=== PATIENT | female | born 1965 | race Caucasian/White ===

== ENCOUNTER 2016-03-10 15:33 | Emergency (ER) | payer MEDICAID ==
[~2016-03-10] VITALS: Ht 182.9 cm; Wt 81.6 kg
[2016-03-10 16:34] LABS: Basophils # (auto) 0 uL; Basophils % (auto) 0.6 % (0.0-2.0); Eosinophils # (auto) 0 uL; Eosinophils % (auto) 0.6 % (0.0-7.0); Hemoglobin 16.1 g/dL (12.2-16.2); Lymphocytes # (auto) 2.2 uL; Lymphocytes % (auto) 25.4 % (10.0-50.0); Mean Corpuscular Hemoglobin 27.3 pg (28.0-32.0); Mean Corpuscular Hgb Conc. 32.3 g/dL (32.0-36.0); Mean Corpuscular Volume 84.6 fL (80.0-100.0); Mean Platelet Volume 10.3 fL (7.4-10.4); Monocytes # (auto) 0.4 uL; Neutrophils # (auto) 5.8 uL; Neutrophils % (auto) 68.4 % (37.0-80.0); Platelet Count (auto) 257 10^3/uL (140-450); Red Cell Distribution Width 13.6 % (11.6-16.0); White Blood Cell 8.5 10^3/uL (4.4-10.8)
[2016-03-10 16:40] LABS: Calcium 9.3 mg/dL (8.5-10.1); Magnesium 2.4 mg/dL (1.6-2.6); Potassium 4.1 mmol/L (3.5-5.1)
[2016-03-10 16:42] LABS: BUN/Creatinine Ratio 15.6
[2016-03-10 16:45] LABS: Bilirubin, Total 1.1 mg/dL (0.2-1.0); Total Protein 8.7 g/dL (6.4-8.2)
[2016-03-10 16:56] VITALS: BP 170/99
[2016-03-10] MEDS ORDERED: ONDANSETRON HCL 4 MG/2 ML VIAL IM ONE (17:30)
[2016-03-10] MEDS ORDERED: HYDROmorphone HCL 2 MG/ML VL IM ONE (17:30)
== END 2016-03-10 18:22 | disposition home or self-care (01) ==
LOC: ER 15:39
DX: J20.9 Acute bronchitis, unspecified (principal); I10 Essential (primary) hypertension; M19.90 Unspecified osteoarthritis, unspecified site; F17.210 Nicotine dependence, cigarettes, uncomplicated; F12.10 Cannabis abuse, uncomplicated; Z86.73 Personal history of transient ischemic attack (TIA), and cerebral infarction without residual deficits; Z87.442 Personal history of urinary calculi; Z90.49 Acquired absence of other specified parts of digestive tract; Z88.6 Allergy status to analgesic agent
CPT/HCPCS: 36415; 71020; 80053; 83735; 84484; 85025; 93005; 96372; 99285; J1170; J2405

== ENCOUNTER 2017-05-24 19:19 | Emergency (ER) | payer MEDICAID ==
[~2017-05-24] VITALS: Ht 182.9 cm; Wt 81.6 kg
[2017-05-24 20:21] LABS: Basophils # (auto) 0.1 uL; Basophils % (auto) 0.8 % (0.0-2.0); Eosinophils # (auto) 0.1 uL; Eosinophils % (auto) 1.1 % (0.0-7.0); Hematocrit 49.9 % (36.0-46.0); Hemoglobin 17.2 g/dL (12.2-16.2); Lymphocytes # (auto) 2.1 uL; Lymphocytes % (auto) 24.6 % (10.0-50.0); Mean Corpuscular Hemoglobin 29.5 pg (28.0-32.0); Mean Corpuscular Hgb Conc. 34.4 g/dL (32.0-36.0); Monocytes # (auto) 0.5 uL; Neutrophils # (auto) 5.8 uL; Neutrophils % (auto) 67.5 % (37.0-80.0); Nucleated Red Blood Cells % 0.1 %; Platelet Count (auto) 215 10^3/uL (140-450); Red Blood Cells 5.81 10^6/uL (4.0-5.20); Red Cell Distribution Width 13.5 % (11.8-14.3); White Blood Cell 8.6 10^3/uL (4.4-10.8)
[2017-05-24 20:40] LABS: Alanine Aminotransferase 60 U/L (13-56); Albumin 4.2 g/dL (3.4-5.0); Alkaline Phosphatase 105 U/L (45-117); Anion Gap 10 (5-15); Aspartate Aminotransferase 43 U/L (15-37); BUN/Creatinine Ratio 19.6; Bilirubin, Total 0.9 mg/dL (0.2-1.0); Blood Urea Nitrogen 21 mg/dL (7-18); Calcium 8.9 mg/dL (8.5-10.1); Carbon Dioxide 24 mmol/L (21-32); Chloride 103 mmol/L (98-107); GFR African American 69 mL/min; GFR Non-African American 57 mL/min; Glucose 104 mg/dL (74-106); Magnesium 2.4 mg/dL (1.6-2.6); Potassium 3.4 mmol/L (3.5-5.1); Sodium 137 mmol/L (136-145); Total Protein 9.2 g/dL (6.4-8.2)
[2017-05-25 01:46] LABS: Urine Bacteria NONE SEEN /hpf (None Seen); Urine Blood Negative /uL (Negative); Urine Mucus FEW (None Seen); Urine Specific Gravity 1.027 (1.001-1.035); Urine WBC 3 /hpf (0 - 5)
[2017-05-25 01:58] LABS: Alcohol, Urine < 3.0 mg/dL (0-5); Amphetamine Screen, Urine NEGATIVE (NEGATIVE); Barbiturate Scree,Urine NEGATIVE (NEGATIVE); Benzodiazephine Screen, Urine NEGATIVE (NEGATIVE); Cannabinoid Screen, Urine POSITIVE (NEGATIVE); Cocaine Screen, Urine NEGATIVE (NEGATIVE); Opiate Scree,Urine NEGATIVE (NEGATIVE); Phencyclidine Screen, Urine NEGATIVE (NEGATIVE)
[2017-05-25] MEDS ORDERED: cloNIDine HCL 0.1 MG TAB PO ONE (03:45)
[2017-05-25] MEDS ORDERED: HYDROcodone-ACET 10/325MG TAB PO ONE (03:45)
[2017-05-25 05:31] VITALS: BP 120/84
== END 2017-05-25 05:47 | disposition home or self-care (01) ==
LOC: EDBD 19:19 → ER 19:19 → EDSEX 19:19 → EDUNIT# 19:19 → ER 05-25 05:47
DX: M54.5 Low back pain (principal); I10 Essential (primary) hypertension; F17.210 Nicotine dependence, cigarettes, uncomplicated; F12.10 Cannabis abuse, uncomplicated; M19.90 Unspecified osteoarthritis, unspecified site; Z87.442 Personal history of urinary calculi; Z86.73 Personal history of transient ischemic attack (TIA), and cerebral infarction without residual deficits; Z88.6 Allergy status to analgesic agent
CPT/HCPCS: 36415; 80053; 80307; 81001; 83735; 84484; 84702; 85025; 93005; 99285; J7030

== ENCOUNTER → 2018-05-31 | Outpatient (CLI) | payer MEDICAID | END | disposition home or self-care (01) | LOC: Rad HDHVI 07:58 | PROVIDERS: ATTEND Internal Medicine Cardiovascular Disease | DX: I07.1 Rheumatic tricuspid insufficiency (principal); I35.1 Nonrheumatic aortic (valve) insufficiency; I70.0 Atherosclerosis of aorta; M47.894 Other spondylosis, thoracic region; E11.9 Type 2 diabetes mellitus without complications; I10 Essential (primary) hypertension; J44.9 Chronic obstructive pulmonary disease, unspecified; J98.4 Other disorders of lung | CPT/HCPCS: 71046; 93306 ==

== ENCOUNTER → 2018-06-24 | Outpatient (CLI) | payer MEDICAID ==
[~2018-06-24] VITALS: Ht 182.9 cm; Wt 85.3 kg
[~2018-06-24] MED LIST: ACETAMINOPHEN 500 MG TAB PO ONE; ADENOSINE 72 MG in GIVE UN-DILUTED 0 ML IV ONE; ADENOSINE 90 MG/30 ML INJ IV ONE; ALBUTEROL SULF 2.5 MG/0.5ML(0.5%) NEB SOLN ONE
[2018-06-24] MEDS: cloNIDine HCL 0.1 MG TAB ONE ×2 (14:30→14:59)
[2018-06-24] MEDS: ONDANSETRON HCL 4 MG/2 ML VIAL ONE ×2 (14:35→14:59)
--- NOTE | 2018-06-24 15:11 | NUR ---
Stress test rescheduled due to elevated BP 181/110. Pt stated she had not taken her BP medication today. Pt was instructed to take BP medication and Clonidine 0.1 mg given. Pt was unable to tolerate PO medication. Zofran 4 mg IVP given and patient stated relief of nausea/vomiting. Pt stated she will take her BP medication when she arrives home and has something to eat. Pt instructed to check her BP one hour after taking medication and if it is still elevated to go to urgent care. Pt verbalized understanding.
--- NOTE | 2018-09-06 10:11 | NUR ---
Late Entry for 06/24/18 ALBUTEROL MED/NEB ADMINISTERED TO PATIENT AT 1430 ON 06/24/18
== END | disposition home or self-care (01) ==
LOC: Rad HDHVI 12:54
PROVIDERS: ATTEND Internal Medicine Cardiovascular Disease
DX: J44.9 Chronic obstructive pulmonary disease, unspecified (principal); I10 Essential (primary) hypertension; R07.89 Other chest pain; R06.02 Shortness of breath; I25.10 Atherosclerotic heart disease of native coronary artery without angina pectoris; F32.9 Major depressive disorder, single episode, unspecified; F17.200 Nicotine dependence, unspecified, uncomplicated
CPT/HCPCS: 78452; 93005; 94640; 96374; A9500; J0153; J2405; J7611; 96375

== ENCOUNTER 2018-09-14 14:38 | Emergency (ER) | payer MEDICAID ==
[~2018-09-14] VITALS: Ht 180.3 cm; Wt 81.6 kg
[2018-09-14 15:32] LABS: Basophils # (auto) 0 uL; Basophils % (auto) 0.3 % (0.0-2.0); Eosinophils # (auto) 0 uL; Eosinophils % (auto) 0.1 % (0.0-7.0); Hematocrit 50.5 % (36.0-46.0); Hemoglobin 16.8 g/dL (12.2-16.2); Lymphocytes # (auto) 0.9 uL; Lymphocytes % (auto) 9.3 % (10.0-50.0); Mean Corpuscular Hgb Conc. 33.3 g/dL (32.0-36.0); Mean Corpuscular Volume 87.1 fL (80.0-100.0); Monocytes # (auto) 0.3 uL; Monocytes % (auto) 2.7 % (0.0-12.0); Neutrophils # (auto) 8.9 uL; Neutrophils % (auto) 87.6 % (37.0-80.0); Nucleated Red Blood Cells % 0.1 %; Platelet Count (auto) 213 10^3/uL (140-450); Red Blood Cells 5.79 10^6/uL (4.0-5.20); Red Cell Distribution Width 13.5 % (11.8-14.3); White Blood Cell 10.2 10^3/uL (4.4-10.8)
[2018-09-14 15:50] LABS: Anion Gap 9 (5-15); Blood Alcohol < 3.0 mg/dL (0-5); Blood Urea Nitrogen 31 mg/dL (7-18); Carbon Dioxide 21 mmol/L (21-32); Chloride 110 mmol/L (98-107); Glucose 121 mg/dL (74-106); Potassium 4.7 mmol/L (3.5-5.1); Sodium 140 mmol/L (136-145)
[2018-09-14 15:52] LABS: Calcium 10.2 mg/dL (8.5-10.1); GFR African American 50 mL/min; GFR Non-African American 42 mL/min
[2018-09-14 16:52] LABS: Alcohol, Urine < 3.0 mg/dL (0-5); Amphetamine Screen, Urine NEGATIVE (NEGATIVE); Barbiturate Scree,Urine NEGATIVE (NEGATIVE); Benzodiazephine Screen, Urine NEGATIVE (NEGATIVE); Cannabinoid Screen, Urine POSITIVE (NEGATIVE); Cocaine Screen, Urine NEGATIVE (NEGATIVE); Opiate Scree,Urine NEGATIVE (NEGATIVE); Phencyclidine Screen, Urine NEGATIVE (NEGATIVE)
[2018-09-14] MEDS ORDERED: traZODone HCL 50 MG TAB PO ONE (22:00)
[2018-09-14] MEDS ORDERED: risperiDONE 1 MG TAB PO ONE (22:00)
[2018-09-14] MEDS: traZODone HCL 50 MG TAB PO SCH (22:24)
[2018-09-14] MEDS: risperiDONE 1 MG TAB PO SCH (22:24)
[2018-09-15] MEDS ORDERED: hydrOXYzine 25 MG TAB or CAP PO ONE
[2018-09-15] MEDS ORDERED: hydrOXYzine 25 MG TAB or CAP PO PRN
[2018-09-15] MEDS: risperiDONE 1 MG TAB PO SCH ×2 (10:06→22:32)
[2018-09-15] MEDS: traZODone HCL 50 MG TAB PO SCH (22:32)
[2018-09-16 06:11] VITALS: BP 130/86
== END 2018-09-16 06:20 | disposition home or self-care (01) ==
LOC: EDBD 14:38 → ER 14:38
DX: R45.851 Suicidal ideations (principal); M19.90 Unspecified osteoarthritis, unspecified site; I10 Essential (primary) hypertension; F17.210 Nicotine dependence, cigarettes, uncomplicated; F12.90 Cannabis use, unspecified, uncomplicated; Z88.6 Allergy status to analgesic agent; Z86.73 Personal history of transient ischemic attack (TIA), and cerebral infarction without residual deficits; Z90.49 Acquired absence of other specified parts of digestive tract; Z31.9 Encounter for procreative management, unspecified
CPT/HCPCS: 36415; 80048; 80307; 80320; 85025

== ENCOUNTER → 2020-04-25 | Outpatient (CLI) | payer MEDICAID | END | disposition home or self-care (01) | LOC: LAB 09:02 | PROVIDERS: ATTEND Internal Medicine | DX: I35.8 Other nonrheumatic aortic valve disorders (principal); I10 Essential (primary) hypertension; R07.9 Chest pain, unspecified | CPT/HCPCS: 93306 ==

== ENCOUNTER → 2020-05-07 | Outpatient (CLI) | payer MEDICAID ==
[~2020-05-07] VITALS: Ht 185.4 cm; Wt 82.6 kg
[~2020-05-07] MED LIST changes: -ACETAMINOPHEN 500 MG TAB PO ONE; +ADENOSINE 69 MG in GIVE UN-DILUTED 0 ML IV ONE; -ADENOSINE 72 MG in GIVE UN-DILUTED 0 ML IV ONE; -ALBUTEROL SULF 2.5 MG/0.5ML(0.5%) NEB SOLN ONE
== END | disposition home or self-care (01) ==
LOC: Rad HDHVI 08:02
PROVIDERS: ATTEND Internal Medicine
DX: Z01.810 Encounter for preprocedural cardiovascular examination (principal)
CPT/HCPCS: 78452; 93005; 96374; 96375; A9500; J0153

== ENCOUNTER 2021-06-16 08:34 | Emergency (ER) | payer MEDICAID ==
[~2021-06-16] VITALS: Ht 185.4 cm; Wt 88.5 kg
[2021-06-16] MEDS ORDERED: HYDROmorphone HCL 2 MG/ML VL IV ONE (09:45)
[2021-06-16] MEDS ORDERED: PROMETHAZINE HCL 25 MG/ML 1ML IV ONE (09:45)
[2021-06-16] MEDS ORDERED: KETAMINE 50mg/ML 10ml Vial (500mg/10ml) IV ONE (10:30)
[2021-06-16 13:39] VITALS: BP 153/94
== END 2021-06-16 13:38 | disposition home or self-care (01) ==
LOC: ER 08:34
DX: S53.124A Posterior dislocation of right ulnohumeral joint, initial encounter (principal); S63.004A Unspecified dislocation of right wrist and hand, initial encounter; W18.09XA Striking against other object with subsequent fall, initial encounter; Y93.89 Activity, other specified; Y92.89 Other specified places as the place of occurrence of the external cause; Y99.8 Other external cause status
CPT/HCPCS: 24600; 73070; 96374; 96375; 99285; J1170; J2550; 24640

== ENCOUNTER 2022-04-10 13:05 | Emergency (ER) | payer MEDICAID ==
[~2022-04-10] VITALS: Ht 185.4 cm; Wt 86.0 kg
[2022-04-10 13:44] LABS: Basophils # (auto) 0.1 10 ^3/uL (0-0.2); Basophils % (auto) 0.8 % (0.0-2.0); Eosinophils # (auto) 0.2 10 ^3/uL (0-0.8); Eosinophils % (auto) 2.7 % (0.0-7.0); Hematocrit 43.5 % (36.0-46.0); Hemoglobin 14.8 g/dL (12.2-16.2); Lymphocytes # (auto) 1.8 10 ^3/uL (0.4-5.4); Lymphocytes % (auto) 26.1 % (10.0-50.0); Mean Corpuscular Hemoglobin 28.9 pg (28.0-32.0); Monocytes # (auto) 0.5 10 ^3/uL (0-1.3); Monocytes % (auto) 7.1 % (0.0-12.0); Neutrophils # (auto) 4.4 10 ^3/uL (1.6-8.6); Neutrophils % (auto) 63.3 % (37.0-80.0); Nucleated Red Blood Cells % 0.4 %; Red Blood Cells 5.12 10^6/uL (4.0-5.20)
[2022-04-10 14:12] LABS: Albumin 4.1 g/dL (3.4-5.0); Calcium 9.4 mg/dL (8.5-10.1)
[2022-04-10 14:14] LABS: BUN/Creatinine Ratio 23.2; Bilirubin, Total 0.6 mg/dL (0.2-1.0)
[2022-04-10 15:53] VITALS: BP 150/98
[2022-04-10] MEDS ORDERED: HYDROcodone-ACET 5/325MG TAB PO ONE (16:00)
[2022-04-10 17:58] LABS: Alcohol, Urine < 3.0 mg/dL (0-10); Amphetamine Screen, Urine NEGATIVE (NEGATIVE); Barbiturate Scree,Urine NEGATIVE (NEGATIVE); Benzodiazephine Screen, Urine NEGATIVE (NEGATIVE); Cannabinoid Screen, Urine POSITIVE (NEGATIVE); Cocaine Screen, Urine NEGATIVE (NEGATIVE); Phencyclidine Screen, Urine NEGATIVE (NEGATIVE)
[2022-04-10 18:05] LABS: Opiate Scree,Urine NEGATIVE (NEGATIVE)
== END 2022-04-10 18:13 | disposition left against medical advice (07) ==
LOC: ER 13:05 → EDBD 13:05 → ER 18:13
DX: S01.81XA Laceration without foreign body of other part of head, initial encounter (principal); E78.5 Hyperlipidemia, unspecified; I10 Essential (primary) hypertension; Z90.49 Acquired absence of other specified parts of digestive tract; Z86.73 Personal history of transient ischemic attack (TIA), and cerebral infarction without residual deficits; Z87.442 Personal history of urinary calculi; Z79.899 Other long term (current) drug therapy; W01.0XXA Fall on same level from slipping, tripping and stumbling without subsequent striking against object, initial encounter; Y93.89 Activity, other specified; Y92.89 Other specified places as the place of occurrence of the external cause; Y99.8 Other external cause status
CPT/HCPCS: 12011; 36415; 70450; 70486; 72125; 80053; 80307; 85025

== ENCOUNTER → 2022-06-05 | Outpatient (CLI) | payer MEDICAID ==
[~2022-06-05] VITALS: Ht 180.3 cm; Wt 84.8 kg
[~2022-06-05] MED LIST changes: +ACETAMINOPHEN 500 MG TAB PO ONE; -ADENOSINE 69 MG in GIVE UN-DILUTED 0 ML IV ONE; +ADENOSINE 71 MG in GIVE UN-DILUTED 0 ML IV ONE
== END | disposition home or self-care (01) ==
LOC: Rad HDHVI 08:03
PROVIDERS: ATTEND Internal Medicine Cardiovascular Disease
DX: Z01.810 Encounter for preprocedural cardiovascular examination (principal); I10 Essential (primary) hypertension; E78.5 Hyperlipidemia, unspecified; F17.210 Nicotine dependence, cigarettes, uncomplicated; Z82.49 Family history of ischemic heart disease and other diseases of the circulatory system
CPT/HCPCS: 78452; 93005; 96374; 96375; A9500; J0153

== ENCOUNTER → 2022-06-10 | Outpatient (CLI) | payer MEDICAID | END | disposition home or self-care (01) | LOC: Rad HDHVI 13:54 | PROVIDERS: ATTEND Internal Medicine Cardiovascular Disease | DX: I08.8 Other rheumatic multiple valve diseases (principal); I71.21 Aneurysm of the ascending aorta, without rupture; R07.9 Chest pain, unspecified; I10 Essential (primary) hypertension | CPT/HCPCS: 93306 ==

== ENCOUNTER 2022-08-06 13:06 | Emergency (ER) | payer MEDICAID ==
[~2022-08-06] VITALS: Ht 170.2 cm; Wt 75.0 kg
[2022-08-06 14:15] VITALS: BP 130/80
[2022-08-06] MEDS ORDERED: CEPH250C PO (21:19)
[2022-08-06] MEDS ORDERED: DOCU-94 PO (21:21)
== END 2022-08-06 15:14 | disposition left against medical advice (07) ==
LOC: ER 13:06 → EDBD 13:06 → ER 15:14
DX: R10.9 Unspecified abdominal pain (principal); K59.00 Constipation, unspecified; M19.90 Unspecified osteoarthritis, unspecified site; E78.5 Hyperlipidemia, unspecified; I10 Essential (primary) hypertension; F20.9 Schizophrenia, unspecified; F12.10 Cannabis abuse, uncomplicated; F17.210 Nicotine dependence, cigarettes, uncomplicated; Z87.442 Personal history of urinary calculi; Z86.73 Personal history of transient ischemic attack (TIA), and cerebral infarction without residual deficits; Z90.49 Acquired absence of other specified parts of digestive tract; Z88.6 Allergy status to analgesic agent

== ENCOUNTER 2022-08-06 15:14 | Emergency (ER) | payer MEDICAID ==
[~2022-08-06] VITALS: Ht 180.3 cm; Wt 82.0 kg
[2022-08-06] MEDS ORDERED: LACTATED RINGER'S 1,000 ML IV ONE (15:30)
[2022-08-06 15:48] LABS: Basophils # (auto) 0.1 10 ^3/uL (0-0.2); Basophils % (auto) 0.7 % (0.0-2.0); Eosinophils # (auto) 0.1 10 ^3/uL (0-0.8); Eosinophils % (auto) 0.5 % (0.0-7.0); Hemoglobin 13.5 g/dL (12.2-16.2); Lymphocytes # (auto) 1.3 10 ^3/uL (0.4-5.4); Lymphocytes % (auto) 11.1 % (10.0-50.0); Mean Corpuscular Hemoglobin 28.6 pg (28.0-32.0); Mean Corpuscular Hgb Conc. 34.7 g/dL (32.0-36.0); Mean Corpuscular Volume 82.5 fL (80.0-100.0); Monocytes # (auto) 0.7 10 ^3/uL (0-1.3); Monocytes % (auto) 5.4 % (0.0-12.0); Neutrophils % (auto) 82.3 % (37.0-80.0); Nucleated Red Blood Cells % 0.2 %; Red Blood Cells 4.73 10^6/uL (4.0-5.20); Red Cell Distribution Width 12.9 % (11.8-14.3); White Blood Cell 12.1 10^3/uL (4.4-10.8)
[2022-08-06 16:17] LABS: Albumin 3.9 g/dL (3.4-5.0); Calcium 9.5 mg/dL (8.5-10.1)
[2022-08-06 16:22] LABS: BUN/Creatinine Ratio 16.8 (10.0-20.0); Bilirubin, Total 0.7 mg/dL (0.2-1.0); Total Protein 8.2 g/dL (6.4-8.2)
[2022-08-06] MEDS ORDERED: IOHEXOL 300 MG/ML 100ML BOTTLE IJ ONE (16:41)
[2022-08-06 21:11] VITALS: BP 128/78
[2022-08-06] MEDS ORDERED: CEPH250C PO (21:19)
[2022-08-06] MEDS ORDERED: DOCU-94 PO (21:21)
[2022-08-06] MEDS ORDERED: SENNA 8.6 MG TAB PO ONE (21:30)
[2022-08-06] MEDS ORDERED: MILK OF MAGNESIA 30ML SUSP PO ONE (21:30)
[2022-08-06] MEDS ORDERED: POLYETHYLENE GLYCOL 17 GM PWDR PO ONE (21:30)
[2022-08-06] MEDS ORDERED: DOCUSATE SOD 100 MG CAP PO ONE (21:30)
== END 2022-08-06 22:08 | disposition left against medical advice (07) ==
LOC: ER 15:14
DX: N30.90 Cystitis, unspecified without hematuria (principal); M19.90 Unspecified osteoarthritis, unspecified site; I10 Essential (primary) hypertension; F20.9 Schizophrenia, unspecified; F17.210 Nicotine dependence, cigarettes, uncomplicated; Z87.442 Personal history of urinary calculi; Z86.73 Personal history of transient ischemic attack (TIA), and cerebral infarction without residual deficits; Z90.49 Acquired absence of other specified parts of digestive tract; Z88.6 Allergy status to analgesic agent
CPT/HCPCS: 36415; 74177; 80053; 85025; 96360; 99285; Q9967

== ENCOUNTER 2024-03-16 01:52 | Inpatient (IN) | payer MEDICAID ==
[~2024-03-16] VITALS: Ht 182.9 cm; Wt 72.6 kg
[~2024-03-16 01:52] MED LIST changes: -ACETAMINOPHEN 500 MG TAB PO ONE; -ADENOSINE 71 MG in GIVE UN-DILUTED 0 ML IV ONE; -ADENOSINE 90 MG/30 ML INJ IV ONE; +CEPH250C PO; +DOCU-94 PO
--- NOTE | 2024-03-16 03:12 | ED.PDOC ---
History of Present Illness HPI Comments 59 y/o F, with a Hx of arthritis, HLD, HTN, kidney stones, schizophrenia, TIA, cholecystectomy, and marijuana use, is BIBA for c/o generalized weakness, fatigue, intermittent chest and abdominal pain, shortness of breath with exertion, nonproductive cough, wheezing, urine retention, and constipation for 1x week, today. Patient also reports on checking her undergarments prior to EMS arrival on scene and noticing a "black stain" on them. She endorses on no recent sick contact, travel, spoiled food intake, or any additional relevant or pertinent history. Patient denies any vomiting, diarrhea, fever, chills, palpitations, or other associated symptoms or modifiers at this time. Chief Complaint: General Weakness Time Seen by MD: 02:30 Primary Care Provider: LILIA CHARLES Reviewed Notes: Nurses Notes, Rope Cleaner Notes, Medications, Allergies Allergies: Coded Allergies: Ibuprofen (Verified Allergy, Unknown, 09/06/14) Home Meds Active Scripts Docusate Sodium (Colace) 100 Mg Cap, 100 MG PO BID for 10 Days, #20 CAP Prov:MANUEL MAIN MD 08/06/22 Cephalexin (KEFLEX CAPSULE) 250 Mg Cp, 250 MG PO QID for 7 Days, #28 TAB Prov:MANUEL MAIN MD 08/06/22 Information Source: Patient, Emergency Med Personnel Mode of Arrival: EMS Severity: Moderate Timing: Weeks Duration: Since onset Prehospital treatment: 12 Lead EKG, Airplane Pilot Review of Systems: REVIEW OF SYSTEMS: Fatigue, no fever, no chills HEENT: No sore throat, no earache, no congestion, no neck pain. Cardiac: Chest pain. No palpitations. Lungs: Shortness of breath with exertion, cough, wheezing. GI: Abdominal pain, nausea, constipation, melena, no vomiting, no diarrhea, no constipation, : Urine retention, no dysuria, frequency, or urgency. No hematuria. Musculoskeletal: No joint pain , no joint swelling, no extremity edema. Skin: No rash, no itching. Neuro: Weakness, no headache, no dizziness Vital Signs Vital Signs Date Time Temp Pulse Resp B/P (MAP) Pulse Ox O2 Delivery O2 Flow Rate FiO2 03/16/24 04:41 99 03/16/24 04:40 99.5 18 98/75 (83) 93 99.5 03/16/24 04:40 Room Air* 0 21 Physical Exam General: Awake, alert and oriented. No acute distress. Skin: Skin in warm, dry and intact. Appropriate color for ethnicity. Nailbeds pink with no cyanosis. HEENT: The head is normocephalic and atraumatic. Conjunctivae are clear without exudates or hemorrhage. Sclera is non-icteric. EOM are intact. No signs of nystagmus. Eyelids are normal in appearance without swelling or lesions. Oral mucosa is pink and moist Neck: The neck is supple with normal range of motion. No JVD. Cardiac: Heart rate and rhythm are normal. No murmurs, gallops, or rubs are auscultated. Respiratory: No signs of respiratory distress. Lung sounds are clear in all lobes bilaterally without rales, ronchi, or wheezes. Abdominal: Abdomen is soft, without distention. Generalized abdominal tenderness. Bowel sounds are present and normoactive in all four quadrants. Extremities: Upper and lower extremities are atraumatic in appearance without deformity or edema. Neurological: The patient is awake, alert and oriented to person, place, and time with normal speech. Speech is clear. There is no facial asymmetry. Psychiatric: Appropriate mood and affect. Good judgement and insight. No visual or auditory hallucinations. Past Medical History PAST MEDICAL HISTORY: Arthritis, High Lipids, HTN, Kidney Stones, Schizophrenia, TIA Surgical History: Cholecystectomy Surgical History (Other): tracheostomy placement and abdominal tumor removal surgery at 3x weeks old s/p "fractured splee to the right-side of brain" [employer] History: No Pertinent [employer] History Family History Family History: No family hx of Cancer, No family hx of Heart jose, No family hx of HTN, Family hx of DM Social History Smoker: Cigarettes Alcohol: Denies ETOH Use Drugs: Marijuana Lives In: Home Was a procedure done? Was a procedure done?: No Differential Dx Considerations may include: viral syndrome, URI, electrolyte imbalance, dehydration, constipation, gastritis, gastroenteritis, acute abdomen X-Ray, Labs, Meds, VS Vital Signs Date Time Temp Pulse Resp B/P (MAP) Pulse Ox O2 Delivery O2 Flow Rate FiO2 03/16/24 04:41 99 03/16/24 04:40 99.5 106 18 98/75 (83) 93 99.5 03/16/24 04:40 106 18 93 Room Air* 0 21 03/16/24 02:01 99.7 112 16 104/67 (79) 94 03/16/24 01:54 107 Lab Test 03/16/24 02:49 Range/Units White Blood Count 8.3 4.4-10.8 10^3/uL Red Blood Count 4.81 4.0-5.20 10^6/uL Hemoglobin 14.3 12.2-16.2 g/dL Hematocrit 40.5 36.0-46.0 % Mean Corpuscular Volume 84.1 80.0-100.0 fL Mean Corpuscular Hemoglobin 29.7 28.0-32.0 pg Mean Corpuscular Hemoglobin Concent 35.3 32.0-36.0 g/dL Red Cell Distribution Width 12.9 11.8-14.3 % Platelet Count 137 L 140-450 10^3/uL Mean Platelet Volume 10.1 6.9-10.8 fL Neutrophils (%) (Auto) 83.6 H 37.0-80.0 % Lymphocytes (%) (Auto) 8.3 L 10.0-50.0 % Monocytes (%) (Auto) 8.0 0.0-12.0 % Eosinophils (%) (Auto) 0.0 0.0-7.0 % Basophils (%) (Auto) 0.1 0.0-2.0 % Neutrophils # (Auto) 7.0 1.6-8.6 10 ^3/uL Lymphocytes # (Auto) 0.7 0.4-5.4 10 ^3/uL Monocytes # (Auto) 0.7 0-1.3 10 ^3/uL Eosinophils # (Auto) 0 0-0.8 10 ^3/uL Basophils # (Auto) 0 0-0.2 10 ^3/uL Nucleated Red Blood Cells 0.1 % Sodium Level 129 L 136-145 mmol/L Potassium Level 2.7 L 3.5-5.1 mmol/L Chloride Level 94 L 98-107 mmol/L Carbon Dioxide Level 23 20-31 mmol/L Anion Gap 12 5-15 Blood Urea Nitrogen 48 H 9-23 mg/dL Creatinine 2.30 H 0.550-1.02 mg/dL Glomerular Filtration Rate Calc 24 >90 mL/min BUN/Creatinine Ratio 20.9 H 10.0-20.0 Serum Glucose 107 H 74-106 mg/dL Lactic Acid Level 1.5 0.4-2.0 mmol/L Calcium Level 10.0 8.7-10.4 mg/dL Magnesium Level 2.2 1.6-2.6 mg/dL Total Bilirubin 0.6 0.2-1.0 mg/dL Aspartate Amino Transferase (AST) 26 13-40 U/L Alanine Aminotransferase (ALT) 20 7-40 U/L Alkaline Phosphatase 58 46-116 U/L Troponin I High Sensitivity 16 </=34 ng/L B-Type Natriuretic Peptide 16.04 0-100 pg/mL Total Protein 8.1 5.7-8.2 g/dL Albumin 4.7 3.2-4.8 g/dL Lipase 76 H 12-53 U/L Plasma/Serum Blood Alcohol < 3.0 <10 mg/dL Current Medications Medications (Trade) Dose Ordered Sig/Yesika Route Start Time Stop Time Status Last Admin Sodium Chloride 1,000 ml @ 1,000 mls/hr Q1H ONCE IV 03/16/24 02:45 03/16/24 03:44 DC 03/16/24 05:41 Potassium Chloride (Klor-Con Tablet) 40 meq ONCE ONCE PO 03/16/24 05:00 03/16/24 05:01 DC 03/16/24 05:04 Ondansetron HCl (Zofran Po) 4 mg ONCE ONCE PO 03/16/24 05:00 03/16/24 05:01 DC 03/16/24 05:03 [place] [id number] Ph: [phone] DIAGNOSTIC IMAGING Diagnostic Imaging Report : [id number] Signed PATIENT: UCHE STYLES ACCT: [id number] UNIT: [id number] : 1965 LOC: ER ROOM / BED: / AGE / SEX: 59 / F ADM STATUS: REG ER SERVICE 1 ORDERING PHYSICIAN: JOSE ANTONIO BAUM MD PROCEDURE(s): ABPL - CT AB PEL WO CON-NO ORAL OR IV REASON: abdominal pain ORDER NUMBER(s): [id number], ACCESSION NUMBER(s): [id number] Exam: CT CT AB PEL WO CON-NO ORAL OR IV History: abdominal pain Comparison Study: CT of the abdomen pelvis dated 08/06/2022 Technique: Multidetector spiral CT of the abdomen and pelvis was performed from lung bases to pubic symphysis. Imaging was performed without intravenous contrast. Coronal and sagittal multiplanar reformats were obtained from the axial data set by the technologist. Radiation Dose : 1. Abdomen/Pelvis: CTDIvol 6.5 mGy, DLP 324.4 mGy*cm. Findings: Evaluation of vasculature and solid organs is limited due to lack of intravenous contrast use. Lung Bases: Bilateral tree-in-bud opacities in the lower lobes and br onchiectasis. Liver: The liver is normal in size. No focal lesions. Gallbladder and Biliary Tree: The gallbladder is surgically absent. No intrahepatic or extrahepatic biliary ductal dilatation. Spleen: Unremarkable Pancreas: The pancreas is grossly unremarkable. Adrenal Glands: Unremarkable Kidneys: Right renal atrophy. The left kidney is unremarkable. No intrarenal calculi or hydronephrosis. GI tract: The stomach is grossly normal in appearance. No evidence of small bowel wall thickening or abnormal dilatation to suggest bowel obstruction. The colon is unremarkable. The appendix is visualized and is normal. Peritoneum/mesentery/retroperitoneum. No evidence of free intraperitoneal air. No ascites. No evidence of suspicious lymphadenopathy. Abdominal Wall: Unremarkable. Vasculature: The visualized abdominal aorta is normal in size and caliber. Evaluation of abdominal and pelvic vessels is limited due to lack of intravenous contrast. There are atherosclerotic calcifications in the aorta. Urinary Bladder: Grossly unremarkable for degree of distention. Pelvic Organs: Unremarkable Musculoskeletal: No aggressive focal bony lesions, acute fractures or dislocation. Calcification in the right hip abductor tendons consistent with calcific tendinitis. Lumbar spondylosis. Mineralization within the L3-L4 intervertebral disc space. IMPRESSION: 1. Bronchiectasis and tree-in-bud opacities in the lower lobes consistent with an infectious inflammatory etiology. 2. No acute abnormality in the abdomen or pelvis. 3. Right renal atrophy. 4. Cholecystectomy. ATED BY: SANAZ REYNAGA MD DICTATED DATE/TIME: 03/16/24533 SIGNED BY: SANAZ REYNAGA MD SIGNED DATE/TIME: 03/16/24533 CC: [place] [address] Ph: [phone] DIAGNOSTIC IMAGING Diagnostic Imaging Report : [id number] Signed PATIENT: UCHE STYLES ACCT: [id number] UNIT: [id number] : 1965 LOC: ER ROOM / BED: / AGE / SEX: 59 / F ADM STATUS: REG ER SERVICE 1 ORDERING PHYSICIAN: JOSE ANTONIO BAUM MD PROCEDURE(s): CXR1 - CHEST XRAY 1 VIEW REASON: Suspected Sepsis ORDER NUMBER(s): [id number], ACCESSION NUMBER(s): [id number] CHEST RADIOGRAPH Indication: Suspected Sepsis Technique: Single frontal view of the chest was obtained Comparison: None FINDINGS: Lines and Tubes: None Lungs: No focal consolidation. Pleura: No effusion. No pneumothorax. Cardiomediastinal contours: Unremarkable Bones: No acute osseous abnormality. IMPRESSION: No acute cardiopulmonary disease. ATED BY: JORGE BELLA MD DICTATED DATE/TIME: 03/16/24521 SIGNED BY: JORGE BELLA MD SIGNED DATE/TIME: 03/16/24521 CC: Time of 1ST Reevaluation: 03:00 Reevaluation 1ST: Unchanged Patient Education/Counseling: Diagnosis, Treatment Family Education/Counseling: No Family Present Departure 1 Departure Time of Disposition: 04:53 Impression: Primary Impression: Hyponatremia Additional Impressions: Hypokalemia Renal failure Abdominal pain Disposition: ADMITTED INPATIENT Condition: Stable Comments 59-year-old female with hyponatremia, hypokalemia and acute kidney injury. Possible infectious bronchiectasis on CT abdomen and pelvis. No acute intra- abdominal process. IV fluids and potassium initiated in the emergency department. Patient admitted for further treatment, evaluation and monitoring. Extensive evaluation was performed in attempt to identify or rule out: (See differential diagnosis section) The following tests were ordered, and results were reviewed by me: (See diagnostic results section) The following test were independently interpreted by me: EKG I reviewed and agreed with the following test results read by other providers: N/A I reviewed the following notes from the pt's past medical encounters: Encounter August 19, 2022 for constipation Additional information was gathered from interviewing the following independent historians: EMS Discussion of management or test interpretation with external physician/other qualified health complex care nurse practitioner: N/A Addressed an acute or chronic illness that poses a threat to life or bodily function: Hyponatremia, hypokalemia Decision regarding hospitalization or escalation of hospital level of care: Risk and benefits of admission for further treatment of patient's condition was considered. Due to patient's current clinical condition, high risk of decline and poor outcome if discharged and need for further inpatient management and monitoring, patient will be admitted to the hospital. Drug therapy requiring intensive monitoring for toxicity: IV potassium Parenteral controlled substances: N/A Decision regarding elective major surgery with identified patient or procedure risk factors: N/A Decision regarding emergency major surgery: N/A Decision not to resuscitate or to de-escalate care because of poor prognosis: N/A Diagnosis or treatment significantly limited by social determinants of health: N/A Critical Care Note Critical Care Time?: No Stability Stability form required: No Heart Score Heart Score: Heart Score Response (Comments) Value History N/A 0 EKG N/A 0 Age N/A 0 Risk Factors N/A 0 Troponin N/A 0 Total 0 I personally scribed for JOSE ANTONIO BAUM MD ([email or web address]) on 03/16/24 at 03:12. Electronically submitted by Tom Grijalva ([email or web address]). I personally scribed for JOSE ANTONIO BAUM MD ([email or web address]) on 03/16/24 at 05:43. Electronically submitted by Tom Grijalva ([email or web address]). JOSE ANTONIO BAUM MD Mar 16, 2024 03:12
[2024-03-16 03:20] LABS: Basophils # (auto) 0 10 ^3/uL (0-0.2); Basophils % (auto) 0.1 % (0.0-2.0); Eosinophils # (auto) 0 10 ^3/uL (0-0.8); Hematocrit 40.5 % (36.0-46.0); Hemoglobin 14.3 g/dL (12.2-16.2); Lymphocytes # (auto) 0.7 10 ^3/uL (0.4-5.4); Lymphocytes % (auto) 8.3 % (10.0-50.0); Mean Corpuscular Hemoglobin 29.7 pg (28.0-32.0); Mean Corpuscular Hgb Conc. 35.3 g/dL (32.0-36.0); Mean Corpuscular Volume 84.1 fL (80.0-100.0); Monocytes # (auto) 0.7 10 ^3/uL (0-1.3); Neutrophils % (auto) 83.6 % (37.0-80.0); Nucleated Red Blood Cells % 0.1 %; Platelet Count (auto) 137 10^3/uL (140-450); Red Blood Cells 4.81 10^6/uL (4.0-5.20); Red Cell Distribution Width 12.9 % (11.8-14.3); White Blood Cell 8.3 10^3/uL (4.4-10.8)
[2024-03-16 03:43] LABS: Alanine Aminotransferase 20 U/L (7-40); Albumin 4.7 g/dL (3.2-4.8); Alkaline Phosphatase 58 U/L (46-116); Anion Gap 12 (5-15); Aspartate Aminotransferase 26 U/L (13-40); BUN/Creatinine Ratio 20.9 (10.0-20.0); Carbon Dioxide 23 mmol/L (20-31)
[2024-03-16 03:44] LABS: Bilirubin, Total 0.6 mg/dL (0.2-1.0); Total Protein 8.1 g/dL (5.7-8.2)
[2024-03-16 04:07] LABS: Blood Urea Nitrogen 48 mg/dL (9-23); Chloride 94 mmol/L (98-107); Glucose 107 mg/dL (74-106); Lipase 77 U/L (12-53); Potassium 2.7 mmol/L (3.5-5.1); Sodium 129 mmol/L (136-145)
--- NOTE | 2024-03-16 04:11 | ECG ---
[facility] Test Date: 2024-03-16 Test Time: 01:54:53 Pat Name: UCHE STYLES Department: ED Room: [address] [place] [address] Gender: F Community Health Specialist: GREGORIA : 1965 Requested By: EMERGENCY EMERGENCY Order Number: [id number] Reading MD: Isauro Patel Measurements Intervals [place] Rate: 107 P: 52 NC: 170 QRS: -74 QRSD: 108 T: 67 QT: 369 QTc: 493 Interpretive Statements Sinus tachycardia Left anterior fascicular block Abnormal R-wave progression, late transition Borderline prolonged QT interval Electronically Signed On 03-20-2024 15:27:10 PST by Isauro Patel Please click the below link to view image of tracing.
[2024-03-16 04:40] VITALS: PULSE 106; RESP 18; O2SAT 93
[2024-03-16] MEDS ORDERED: SODIUM CHLORIDE 0.9% 1,000 ML IV ONE (05:00)
[2024-03-16] MEDS: ONDANSETRON ODT 4 MG TAB PO ONE (05:03)
[2024-03-16] MEDS: POTASSIUM CHL 20 Meq TABLET PO ONE (05:04)
[2024-03-16 05:22] LABS: Magnesium 2.2 mg/dL (1.6-2.6)
--- NOTE | 2024-03-16 05:25 | DVH ---
CHEST RADIOGRAPH Indication: Suspected Sepsis Technique: Single frontal view of the chest was obtained Comparison: None FINDINGS: Lines and Tubes: None Lungs: No focal consolidation. Pleura: No effusion. No pneumothorax. Cardiomediastinal contours: Unremarkable Bones: No acute osseous abnormality. IMPRESSION: No acute cardiopulmonary disease.
[2024-03-16 05:30] LABS: Blood Alcohol < 3.0 mg/dL (<10)
--- NOTE | 2024-03-16 05:37 | DVH ---
Exam: CT CT AB PEL WO CON-NO ORAL OR IV History: abdominal pain Comparison Study: CT of the abdomen pelvis dated 08/06/2022 Technique: Multidetector spiral CT of the abdomen and pelvis was performed from lung bases to pubic s ymphysis. Imaging was performed without intravenous contrast. Coronal and sagittal multiplanar refor mats were obtained from the axial data set by the technologist. Radiation Dose : 1. Abdomen/Pelvis: CTDIvol 6.5 mGy, DLP 324.4 mGy*cm. Findings: Evaluation of vasculature and solid organs is limited due to lack of intravenous contrast use. Lung Bases: Bilateral tree-in-bud opacities in the lower lobes and bronchiectasis. Liver: The liver is normal in size. No focal lesions. Gallbladder and Biliary Tree: The gallbladder is surgically absent. No intrahepatic or extrahepatic b iliary ductal dilatation. Spleen: Unremarkable Pancreas: The pancreas is grossly unremarkable. Adrenal Glands: Unremarkable Kidneys: Right renal atrophy. The left kidney is unremarkable. No intrarenal calculi or hydronephros is. GI tract: The stomach is grossly normal in appearance. No evidence of small bowel wall thickening or abnormal dilatation to suggest bowel obstruction. The colon is unremarkable. The appendix is visual ized and is normal. Peritoneum/mesentery/retroperitoneum. No evidence of free intraperitoneal air. No ascites. No evidenc e of suspicious lymphadenopathy. Abdominal Wall: Unremarkable. Vasculature: The visualized abdominal aorta is normal in size and caliber. Evaluation of abdominal a nd pelvic vessels is limited due to lack of intravenous contrast. There are atherosclerotic calcifica tions in the aorta. Urinary Bladder: Grossly unremarkable for degree of distention. Pelvic Organs: Unremarkable Musculoskeletal: No aggressive focal bony lesions, acute fractures or dislocation. Calcification in t he right hip abductor tendons consistent with calcific tendinitis. Lumbar spondylosis. Mineralization within the L3-L4 intervertebral disc space. IMPRESSION: 1. Bronchiectasis and tree-in-bud opacities in the lower lobes consistent with an infectious inflamma tory etiology. 2. No acute abnormality in the abdomen or pelvis. 3. Right renal atrophy. 4. Cholecystectomy.
[2024-03-16] MEDS: SODIUM CHLORIDE 0.9% 1,000 ML IV ONE (05:41)
[2024-03-16 05:51] LABS: Lipase 76 U/L (12-53)
[2024-03-16] MEDS: SODIUM CHLORIDE 0.9% 1,000 ML IV SCH (07:00)
[2024-03-16] MEDS ORDERED: NITROGLYCERIN 0.4 MG SL TAB SL PRN (07:00)
[2024-03-16] MEDS ORDERED: MORPHINE SULFATE INJ 2 MG/ml SYRG IV PRN (07:00)
[2024-03-16] MEDS ORDERED: ACETAMINOPHEN 325 MG TAB PO PRN (07:00)
--- NOTE | 2024-03-16 07:01 | DVHHP2 ---
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 Patient states that her chest pain is nonradiating throbbing, constant, 8/10. Patient states that there are no triggering or alleviating factors also she reports that she had no recent sick contacts or was not ill recently. Patient also reports that she is compliant with her medications. Patient does report that she quit smoking, quit mariju anthony, and denies any illicit drug use. Patient denies any fever, chills, nausea, vomiting, diarrhea, lightheadedness, and dizziness. Cardiovascular: HTN, hyperipidemia END TRIMMER: TIA Psych: Schizophrenia Past Medical History Arthritis Past Surgical History: Cholecystectomy, Other (Tracheotomy and abdominal tumor removal at 3-week-old, right cerebral splenectomy ) Smoke: Quit ALCOHOL: none Drugs: Other (Quit marijuana) Lives: with Family Domestic Violence: Neg Review of Systems Constitutional: Yes: Weakness, Other (Fatigue); No: Fever, Chills, Sweats, Malaise Eyes: No: Pain, Vision change, Conjunctivae inflammation, Eyelid inflammation, Other, Redness ENT: No: Ear pain, Ear discharge, Nose pain, Nose discharge, Nose congestion, Mouth pain, Mouth swelling, Throat pain, Throat swelling, Other Respiratory: Cough, Shortness of breath, Wheezing; No: Dry, SOB with excertion, Hemoptysis, Pleuritic Pain, Sputum, Wheezing, Other Cardiovascular: Chest Pain; No: Palpitations, Orthopnea, Paroxysmal Noc. Dyspnea, Edema, Lt Headedness, Other Gastrointestinal: Abdominal Pain; No: Nausea, Vomiting, Diarrhea, Constipation, Melena, Hematochezia, Other Genitourinary: No Dysuria, No Frequency, No Incontinence, No Hematuria; Retention; No Other Musculoskeletal: No: other, neck pain, shoulder pain, arm pain, back pain, hand pain, leg pain, foot pain Skin: No: Rash, Lesions, Jaundice, Bruising, Other Neurological: No: Weakness, Numbness, Incoordination, Change in speech, Confusion, Seizures, Other Allergies: Coded Allergies: Ibuprofen (Verified Allergy, Unknown, 09/06/14) Exam Vital Signs Vital Signs Date Time Temp Pulse Resp B/P (MAP) Pulse Ox O2 Delivery O2 Flow Rate FiO2 03/16/24 04:41 99 03/16/24 04:40 99.5 18 98/75 (83) 93 99.5 03/16/24 04:40 Room Air* 0 21 General Appearance: Alert, Oriented X3, Cooperative, No acute distress HEENT: Atraumatic, PERRLA, EOMI, Mucous membr. moist/pink Respiratory: Clear to auscultation, Normal air movement Cardiovascular: Normal S1, Normal S2, No murmurs Abdominal: Normal bowel sounds, Soft, No tenderness, No hepatospenomegaly, No masses Extremities: No clubbing, No cyanosis, No edema, Normal pulses, No tenderness/swelling Skin: No rashes, No breakdown, No significant lesion Neuro: Normal gait, Normal speech, Strength at 5/5 X4 ext, Normal tone, Sensation intact Psych/Mental Status: Mental status NL, Mood NL Labs/Xrays Labs Test 03/16/24 02:49 Range/Units White Blood Count 8.3 4.4-10.8 10^3/uL Red Blood Count 4.81 4.0-5.20 10^6/uL Hemoglobin 14.3 12.2-16.2 g/dL Hematocrit 40.5 36.0-46.0 % Mean Corpuscular Volume 84.1 80.0-100.0 fL Mean Corpuscular Hemoglobin 29.7 28.0-32.0 pg Mean Corpuscular Hemoglobin Concent 35.3 32.0-36.0 g/dL Red Cell Distribution Width 12.9 11.8-14.3 % Platelet Count 137 L 140-450 10^3/uL Mean Platelet Volume 10.1 6.9-10.8 fL Neutrophils (%) (Auto) 83.6 H 37.0-80.0 % Lymphocytes (%) (Auto) 8.3 L 10.0-50.0 % Monocytes (%) (Auto) 8.0 0.0-12.0 % Eosinophils (%) (Auto) 0.0 0.0-7.0 % Basophils (%) (Auto) 0.1 0.0-2.0 % Neutrophils # (Auto) 7.0 1.6-8.6 10 ^3/uL Lymphocytes # (Auto) 0.7 0.4-5.4 10 ^3/uL Monocytes # (Auto) 0.7 0-1.3 10 ^3/uL Eosinophils # (Auto) 0 0-0.8 10 ^3/uL Basophils # (Auto) 0 0-0.2 10 ^3/uL Nucleated Red Blood Cells 0.1 % Sodium Level 129 L 136-145 mmol/L Potassium Level 2.7 L 3.5-5.1 mmol/L Chloride Level 94 L 98-107 mmol/L Carbon Dioxide Level 23 20-31 mmol/L Anion Gap 12 5-15 Blood Urea Nitrogen 48 H 9-23 mg/dL Creatinine 2.30 H 0.550-1.02 mg/dL Glomerular Filtration Rate Calc 24 >90 mL/min BUN/Creatinine Ratio 20.9 H 10.0-20.0 Serum Glucose 107 H 74-106 mg/dL Lactic Acid Level 1.5 0.4-2.0 mmol/L Calcium Level 10.0 8.7-10.4 mg/dL Magnesium Level 2.2 1.6-2.6 mg/dL Total Bilirubin 0.6 0.2-1.0 mg/dL Aspartate Amino Transferase (AST) 26 13-40 U/L Alanine Aminotransferase (ALT) 20 7-40 U/L Alkaline Phosphatase 58 46-116 U/L Troponin I High Sensitivity 16 </=34 ng/L B-Type Natriuretic Peptide 16.04 0-100 pg/mL Total Protein 8.1 5.7-8.2 g/dL Albumin 4.7 3.2-4.8 g/dL Lipase 76 H 12-53 U/L Plasma/Serum Blood Alcohol < 3.0 <10 mg/dL CHEST RADIOGRAPH Indication: Suspected Sepsis Technique: Single frontal view of the chest was obtained Comparison: None FINDINGS: Lines and Tubes: None Lungs: No focal consolidation. Pleura: No effusion. No pneumothorax. Cardiomediastinal contours: Unremarkable Bones: No acute osseous abnormality. IMPRESSION: No acute cardiopulmonary disease. Exam: CT CT AB PEL WO CON-NO ORAL OR IV History: abdominal pain Comparison Study: CT of the abdomen pelvis dated 08/06/2022 Technique: Multidetector spiral CT of the abdomen and pelvis was performed from lung bases to pubic symphysis. Imaging was performed without intravenous contrast. Coronal and sagittal multiplanar reformats were obtained from the axial data set by the technologist. Radiation Dose : 1. Abdomen/Pelvis: CTDIvol 6.5 mGy, DLP 324.4 mGy*cm. Findings: Evaluation of vasculature and solid organs is limited due to lack of intravenous contrast use. Lung Bases: Bilateral tree-in-bud opacities in the lower lobes and bronchiectasis. Liver: The liver is normal in size. No focal lesions. Gallbladder and Biliary Tree: The gallbladder is surgically absent. No intrahepatic or extrahepatic biliary ductal dilatation. Spleen: Unremarkable Pancreas: The pancreas is grossly unremarkable. Adrenal Glands: Unremarkable Kidneys: Right renal atrophy. The left kidney is unremarkable. No intrarenal calculi or hydronephrosis. GI tract: The stomach is grossly normal in appearance. No evidence of small bowel wall thickening or abnormal dilatation to suggest bowel obstruction. The colon is unremarkable. The appendix is visualized and is normal. Peritoneum/mesentery/retroperitoneum. No evidence of free intraperitoneal air. No ascites. No evidence of suspicious lymphadenopathy. Abdominal Wall: Unremarkable. Vasculature: The visualized abdominal aorta is normal in size and caliber. Evaluation of abdominal and pelvic vessels is limited due to lack of intravenous contrast. There are atherosclerotic calcifications in the aorta. Urinary Bladder: Grossly unremarkable for degree of distention. Pelvic Organs: Unremarkable Musculoskeletal: No aggressive focal bony lesions, acute fractures or dislocation. Calcification in the right hip abductor tendons consistent with calcific tendinitis. Lumbar spondylosis. Mineralization within the L3-L4 inter vertebral disc space. IMPRESSION: 1. Bronchiectasis and tree-in-bud opacities in the lower lobes consistent with an infectious inflammatory etiology. 2. No acute abnormality in the abdomen or pelvis. 3. Right renal atrophy. 4. Cholecystectomy. Assessment/Plan Assessment/Plan Assessment/Plan: Atypical chest pain r/o ACS Bronchiectasis HUGH on CKD 4 Thrombocytopenia Hyponatremia Hypochloremia Rule out sepsis Elevated BUN Elevated creatinine Elevated lipase CT abdomen and pelvis EKG Labs A.m. labs Antiemetics IV antibiotics-ceftriaxone NS 2 L given in ED Lipase Mag level Urine sodium UA Drug screen Blood alcohol BNP Trop negative Chest x-ray noted Lactic Procalcitonin COVID test Flu test RSV ACS protocol Aspirin Statin TEMI Echo ordered Last echo done on 06/10/2022 EF of greater than 55% Nephro consult Hypokalemia replete lytes Chronic hypertension Continue home meds Chronic hyperlipidemia Continue home meds Anxiety f/u outpatient with PCP - Dr. Ford prn ativan FEN/PPX cardiac diet IV fluids DVT prophylaxis-not indicated patient ambulating PUD prophylaxis not indicated no history of GI bleed or GERD home medications reconciled discussed plan of care with patient and nurse Admit to tele Plan discussed with: Patient My Orders Orders - RETA EDWARDS Ignacia REPAIRER CYLINDER HEADS Procedure Category Date Status Time Ceftriaxone 1gm/50ml PHA 03/16/24 Logged D5w (Rocephin) 09:00 *[facility] CONS 03/16/24 Transmitted -[place] 06:54 Admit ADMIT 03/16/24 Transmitted 06:54 Allergies DEVI 03/16/24 In Process 06:54 Code Status CODE 03/16/24 Transmitted 06:54 2 Gm Sodium Diet DIET 03/16/24 Transmitted Breakfast Sodium Chloride 0.9% PHA 03/16/24 Logged 07:00 Hydrocodone-Acet PHA 03/16/24 Logged 5/325mg Tab ([place] 07:00 Ondansetron Hcl PHA 03/16/24 Logged (Zofran) 07:00 Complete Blood Count LAB 03/17/24 Verified 04:00 Comprehensive LAB 03/17/24 Verified Metabolic Panel 04:00 Echo 2d Mode Cardiac US 03/16/24 Logged DOP 06:54 Acetaminophen Tablet [facility] 03/16/24 Logged (Tylenol Tablet) 07:00 Morphine Sulfate PHA 03/16/24 Logged Injection 07:00 Nitroglycerin PHA 03/16/24 Logged Sublingual (Ntrostat 07:00 Morphine Sulfate PHA 03/16/24 Logged Injection 07:00 Stat Ekg For Chest [facility] 03/16/24 In Process Pain 06:54 Notify Of Changes [facility] 03/16/24 In Process From Base 06:54 Seo Strategist For DEVI 03/16/24 In Process 24 Hours 06:54 Emergency Dysrhythmia [facility] 03/16/24 In Process Protocol 06:54 Rhythm Strips Once [facility] 03/16/24 In Process Every Shift 06:54 Oxygen By Nasal RT 03/16/24 Transmitted Cannula 06:54 Aspirin Enteric PHA 03/16/24 Logged Coated Tablet 10:00 Atorvastatin (Lipitor) PHA 03/16/24 Logged 22:00 Date of Service: Mar 16, 2024 Billing Provider: RETA EDWARDS Common Visit Codes: [id number] INP/OBS CARE (HIGH) RETA EDWARDS Mar 16, 2024 07:01
[2024-03-16] MEDS: IOHEXOL 300 MG/ML 100ML BOTTLE IJ ONE (08:10)
[2024-03-16] MEDS: cefTRIAXone 1GM/50ML D5W 50 ML IV ONE (08:15)
[2024-03-16] MEDS: cefTRIAXone 1GM/50ML D5W 50 ML IV SCH (09:00)
[2024-03-16 09:48] LABS: COVID19 ANTIGEN SOFIA FIA NEGATIVE (NEGATIVE)
[2024-03-16 10:03] LABS: Urine Bacteria None Seen /hpf (None Seen)
[2024-03-16 10:33] LABS: Urine Blood TRACE /uL (Negative); Urine Clarity Turbid (Clear); Urine Color Yellow (Yellow); Urine Hyaline Cast MOD /lpf (0 - 2); Urine Mucus FEW (None Seen); Urine Protein, UAD 1+ (Negative); Urine Specific Gravity 1.018 (1.001-1.035); Urine Squamous Epithelial Cell FEW /hpf (<5); Urine Urobilinogen Normal (Negative); Urine WBC 5 /hpf (0 - 5); Urine pH 5.5 (5.0-9.0)
[2024-03-16 10:39] LABS: Opiate Scree,Urine Neg (NEGATIVE); Phencyclidine Screen, Urine Neg (NEGATIVE)
[2024-03-16 10:41] LABS: Amphetamine Screen, Urine Neg (NEGATIVE); Barbiturate Scree,Urine Neg (NEGATIVE); Benzodiazephine Screen, Urine Neg (NEGATIVE); Cannabinoid Screen, Urine Pos (NEGATIVE); Cocaine Screen, Urine Neg (NEGATIVE)
[2024-03-16] MEDS: ASPirin-EC 81 mg tab PO SCH (10:48)
--- NOTE | 2024-03-16 11:52 | DVHPN2 ---
Reviewed: Care Plan, H&P, Labs, Medications, Previous Orders, Radiology Changes from previous H/P or p: No Changes Eyes: No Pain, No Vision change, No Conjunctivae inflammation, No Eyelid inflammation, No Other, No Redness ENT: No Ear pain, No Ear discharge, No Nose pain, No Nose discharge, No Nose congestion, No Mouth pain, No Mouth swelling, No Throat pain, No Throat swelling, No Other Cardiovascular: Chest Pain; No Palpitations, No Orthopnea, No Paroxysmal Noc. Dyspnea, No Edema, No Lt Headedness, No Other Respiratory: Cough; No Dry; Shortness of breath; No SOB with excertion; W heezing; No Hemoptysis, No Pleuritic Pain, No Sputum, No Other Gastrointestinal: No Nausea, No Vomiting; Abdominal Pain; No Diarrhea, No Constipation, No Melena, No Hematochezia, No Other Genitourinary: No Dysuria, No Frequency, No Incontinence, No Hematuria; R etention; No Other Musculoskeletal: No other, No neck pain, No shoulder pain, No arm pain, No back pain, No hand pain, No leg pain, No foot pain Skin: No Rash, No Lesions, No Jaundice, No Bruising, No Other Objective Vitals Vital Signs Date Time Temp Pulse Resp B/P (MAP) Pulse Ox O2 Delivery O2 Flow Rate FiO2 03/16/24 08:14 98.0 95 19 90/57 (68) 94 98.0 03/16/24 04:40 Room Air* 0 21 Medications Current Medications Medications Dose Ordered Sig/Yesika Route Start Time Stop Time Status Last Admin Dose Admin Ceftriaxone Sodium 50 ml @ 100 mls/hr DAILY@09 IV 03/16/24 09:00 Sodium Chloride 1,000 ml @ 70 mls/hr [id number] IV 03/16/24 07:00 Acetaminophen/ Hydrocodone Bitart 1 tab Q4HP PRN PO 03/16/24 07:00 Ondansetron HCl 4 mg Q4HP PRN IV 03/16/24 07:00 Acetaminophen 650 mg Q6HP PRN PO 03/16/24 07:00 Morphine Sulfate 2 mg Q4HPRN PRN IV 03/16/24 07:00 Nitroglycerin 0.4 mg Q5MINP PRN SL 03/16/24 07:00 Morphine Sulfate 2 mg Q30M PRN IV 03/16/24 07:00 Aspirin 81 mg DAILY PO 03/16/24 10:00 03/16/24 10:48 81 MG Atorvastatin Calcium 10 mg HS PO 03/16/24 22:00 Laboratory Results Laboratory Tests 03/16/24 02:49 Chemistry Test 03/16/24 02:49 Albumin 4.7 g/dL (3.2-4.8) Calcium Level 10.0 mg/dL (8.7-10.4) Magnesium Level 2.2 mg/dL (1.6-2.6) Total Protein 8.1 g/dL (5.7-8.2) Lipid panel Test 03/16/24 02:49 Lipase 76 U/L (12-53) H Cardiac Markers Test 03/16/24 02:49 B-Type Natriuretic Peptide 16.04 pg/mL (0-100) LFT Test 03/16/24 02:49 Alanine Aminotransferase (ALT) 20 U/L (7-40) Alkaline Phosphatase 58 U/L (46-116) Aspartate Amino Transferase (AST) 26 U/L (13-40) Total Bilirubin 0.6 mg/dL (0.2-1.0) Urinalysis Test 03/16/24 04:49 Urine Color Yellow (Yellow) Urine Clarity Turbid (Clear) H Urine pH 5.5 (5.0-9.0) Urine Specific [place] 1.018 (1.001-1.035) Urine Protein 1+ (Negative) H Urine Ketones Negative (Negative) Urine Blood Trace /uL (Negative) H Urine Nitrite Negative (Negative) Urine Bilirubin Negative (Negative) Urine Urobilinogen Normal mg/dL (Negative) Urine Leukocyte Esterase Negative /uL (Negative) Urine RBC 2 /hpf (0 - 4) Urine WBC 5 /hpf (0 - 5) Urine Squamous Epithelial Cells Few /hpf (<5) Urine Bacteria None seen /hpf (None Seen) Urine Hyaline Casts Mod /lpf (0 - 2) Urine Mucus Few (None Seen) Urine Sodium 18 mmol/L (40-220) L Urine Glucose Normal mg/dL (Normal) Labs and/or images reviewed: Labs reviewed by me, Image(s) reviewed by me Assessment/Plan Assessment/Plan Sepsis secondary to community-acquired pneumonia Acute hypoxic respiratory failure: Oxygen by nasal cannula Acute bilateral pneumonia with the bronchiectasis in the right side: Rocephin azithromycin consult for Dr. Nickerson Hypertension Hypercholesterolemia Schizophrenia History of kidney stones History of TIA History of arthritis acute hypokalemia potassium 2.7: Replace potassium Acute hyponatremia sodium 129: IV fluids Acute pancreatitis lipase 77 Acute kidney injury with a BUN 48 and 2.3 for clam shucker Jane test negative Rapid influenza test pending D-dimer pending Marijuana abuse: Counseling Time spent 65 minutes Patient is full code Advanced care planning time 20mts Plan discussed with: Patient My Orders Orders - MILLICENT ORELLANA MD Procedure Category Date Status Time Rapid Influenza A&B LAB 03/16/24 Logged 11:48 D-Dimer LAB 03/16/24 Logged 11:48 Azithromycin 500mg/ PHA 03/17/24 Verified 250ml (Zithromax 50 10:00 Azithromycin 500mg/ PHA 03/16/24 Verified 250ml (Zithromax 50 12:00 *Consult CONS 03/16/24 Verified / 11:49 Date of Service: Mar 16, 2024 Billing Provider: MILLICENT ORELLANA MD Common Visit Codes: [id number] CARE 30-74 MIN MILLICENT ORELLANA MD Mar 16, 2024 11:52
[2024-03-16] MEDS: AZITHROMYCIN 500MG/ 250ML 250 ML IV ONE (13:40)
[2024-03-16 14:56] LABS: Rapid Influenza A Negative (Negative); Rapid Influenza B Negative (Negative)
--- NOTE | 2024-03-16 15:18 | DVHINCON2 ---
Date of service: Mar 16, 2024 Reason for Consultation Acute kidney injury History of Present Illness 59-year-old female presents to abdominal pain. Nephrology consulted due to elevated creatinine level based on previous records patient's renal function was normal in 2022. Past Medical History hypertension, hyperlipidemia, arthritis, kidney stones, schizophrenia, TIA in 2006 Allergies: Coded Allergies: Ibuprofen (Verified Allergy, Unknown, 09/06/14) Home Meds Active Scripts Docusate Sodium (Colace) 100 Mg Cap, 100 MG PO BID for 10 Days, #20 CAP Prov:MANUEL MAIN MD 08/06/22 Cephalexin (KEFLEX CAPSULE) 250 Mg Cp, 250 MG PO QID for 7 Days, #28 TAB Prov:MANUEL MAIN MD 08/06/22 Current Medications Current Medications Medications (Trade) Dose Ordered Sig/Yesika Route PRN Reason Start Time Stop Time Status Last Admin Ceftriaxone Sodium 50 ml @ 100 mls/hr DAILY@09 IV 03/16/24 09:00 Sodium Chloride 1,000 ml @ 70 mls/hr [id number] IV 03/16/24 07:00 Acetaminophen/ Hydrocodone Bitart ([place] 5/325MG Tab) 1 tab Q4HP PRN PO MODERATE PAIN (4-6 PAIN SCALE) 03/16/24 07:00 Ondansetron HCl (Zofran) 4 mg Q4HP PRN IV NAUSEA / VOMITING 03/16/24 07:00 Acetaminophen (Tylenol Tablet) 650 mg Q6HP PRN PO PAIN SCALE 1-3 OR TEMP>100.4 03/16/24 07:00 Morphine Sulfate 2 mg Q4HPRN PRN IV SEVERE PAIN (7-10 PAIN SCALE) 03/16/24 07:00 Nitroglycerin (Ntrostat Sublingual) 0.4 mg Q5MINP PRN SL FOR CHEST PAIN 03/16/24 07:00 Morphine Sulfate 2 mg Q30M PRN IV FOR CHEST PAIN 03/16/24 07:00 Aspirin (Ecotrin Enteric Coated Tablet) 81 mg DAILY PO 03/16/24 10:00 03/16/24 10:48 Atorvastatin Calcium (Lipitor) 10 mg HS PO 03/16/24 22:00 Azithromycin 250 ml @ 125 mls/hr DAILY IV 03/17/24 10:00 H&P Exam Vital Signs/I&O Vital Sign Date Time Temp Pulse Resp B/P (MAP) Pulse Ox O2 Delivery O2 Flow Rate FiO2 03/16/24 13:39 100 16 95 Room Air 03/16/24 13:37 99.0 117/59 (78) 99.0 03/16/24 04:40 0 21 Labs/Diagnostic Data Labs/Diagnostic Data Laboratory Tests Test 03/16/24 13:05 03/16/24 12:50 03/16/24 08:26 03/16/24 04:49 Range/Units Influenza Type A Antigen Negative Negative Influenza Type B Antigen Negative Negative D-Dimer, Quantitative 0.85 H 0.0-0.49 mg/L FEU SARS-CoV-2 Antigen (Rapid) Negative NEGATIVE Urine Color Yellow Yellow Urine Clarity Turbid H Clear Urine pH 5.5 5.0-9.0 Urine Specific [place] 1.018 1.001-1.035 Urine Protein 1+ H Negative Urine Ketones Negative Negative Urine Blood Trace H Negative /uL Urine Nitrite Negative Negative Urine Bilirubin Negative Negative Urine Urobilinogen Normal Negative mg/dL Urine Leukocyte Esterase Negative Negative /uL Urine RBC 2 0 - 4 /hpf Urine WBC 5 0 - 5 /hpf Urine Squamous Epithelial Cells Few <5 /hpf Urine Bacteria None seen None Seen /hpf Urine Hyaline Casts Mod 0 - 2 /lpf Urine Mucus Few None Seen Urine Sodium 18 L 40-220 mmol/L Urine Glucose Normal Normal mg/dL Urine Opiates Screen Neg NEGATIVE Urine Fentanyl Screen Neg NEGATIVE Urine Barbiturates Screen Neg NEGATIVE Urine Phencyclidine Screen Neg NEGATIVE Urine Amphetamines Screen Neg NEGATIVE Urine Benzodiazepines Screen Neg NEGATIVE Urine Cocaine Screen Neg NEGATIVE Urine Cannabinoids Screen Pos NEGATIVE Test 03/16/24 02:49 Range/Units White Blood Count 8.3 4.4-10.8 10^3/uL Red Blood Count 4.81 4.0-5.20 10^6/uL Hemoglobin 14.3 12.2-16.2 g/dL Hematocrit 40.5 36.0-46.0 % Mean Corpuscular Volume 84.1 80.0-100.0 fL Mean Corpuscular Hemoglobin 29.7 28.0-32.0 pg Mean Corpuscular Hemoglobin Concent 35.3 32.0-36.0 g/dL Red Cell Distribution Width 12.9 11.8-14.3 % Platelet Count 137 L 140-450 10^3/uL Mean Platelet Volume 10.1 6.9-10.8 fL Neutrophils (%) (Auto) 83.6 H 37.0-80.0 % Lymphocytes (%) (Auto) 8.3 L 10.0-50.0 % Monocytes (%) (Auto) 8.0 0.0-12.0 % Eosinophils (%) (Auto) 0.0 0.0-7.0 % Basophils (%) (Auto) 0.1 0.0-2.0 % Neutrophils # (Auto) 7.0 1.6-8.6 10 ^3/uL Lymphocytes # (Auto) 0.7 0.4-5.4 10 ^3/uL Monocytes # (Auto) 0.7 0-1.3 10 ^3/uL Eosinophils # (Auto) 0 0-0.8 10 ^3/uL Basophils # (Auto) 0 0-0.2 10 ^3/uL Nucleated Red Blood Cells 0.1 % Sodium Level 129 L 136-145 mmol/L Potassium Level 2.7 L 3.5-5.1 mmol/L Chloride Level 94 L 98-107 mmol/L Carbon Dioxide Level 23 20-31 mmol/L Anion Gap 12 5-15 Blood Urea Nitrogen 48 H 9-23 mg/dL Creatinine 2.30 H 0.550-1.02 mg/dL Glomerular Filtration Rate Calc 24 >90 mL/min BUN/Creatinine Ratio 20.9 H 10.0-20.0 Serum Glucose 107 H 74-106 mg/dL Lactic Acid Level 1.5 0.4-2.0 mmol/L Calcium Level 10.0 8.7-10.4 mg/dL Magnesium Level 2.2 1.6-2.6 mg/dL Total Bilirubin 0.6 0.2-1.0 mg/dL Aspartate Amino Transferase (AST) 26 13-40 U/L Alanine Aminotransferase (ALT) 20 7-40 U/L Alkaline Phosphatase 58 46-116 U/L Troponin I High Sensitivity 16 </=34 ng/L B-Type Natriuretic Peptide 16.04 0-100 pg/mL Total Protein 8.1 5.7-8.2 g/dL Albumin 4.7 3.2-4.8 g/dL Lipase 76 H 12-53 U/L Plasma/Serum Blood Alcohol < 3.0 <10 mg/dL Assessment Acute kidney injury hemodynamically mediated Hyponatremia Hypokalemia sepsis IVF ABX cultures Plan discussed with: Patient DIANA ZAMORA MD Mar 16, 2024 15:18
[2024-03-16 15:38] LABS: Anion Gap 9 (5-15); Calcium 9.6 mg/dL (8.7-10.4); Carbon Dioxide 22 mmol/L (20-31)
[2024-03-16 15:44] LABS: BUN/Creatinine Ratio 25.9 (10.0-20.0)
[2024-03-16 15:51] LABS: Blood Urea Nitrogen 48 mg/dL (9-23); Chloride 97 mmol/L (98-107); Glucose 118 mg/dL (74-106); Potassium 3.4 mmol/L (3.5-5.1); Sodium 128 mmol/L (136-145)
[2024-03-16 17:19] VITALS: BP 94/63; PULSE 93; PULSE 94; RESP 16; TEMP 99.5; O2SAT 93; O2SAT 94
[2024-03-16 17:24] VITALS: BP 94/63; PULSE 94; RESP 16; TEMP 99.5; O2SAT 93
[2024-03-16 17:57] VITALS: PULSE 75; RESP 16; O2SAT 93
[2024-03-16 20:00] VITALS: PULSE 87
[2024-03-16 21:00] VITALS: BP 102/51; PULSE 90; RESP 22; TEMP 98.8; O2SAT 92
--- NOTE | 2024-03-16 21:41 | DVHINCON2 ---
Date of service: Mar 16, 2024 Referring Physician Millicent Orellana MD Reason for Consultation Cough, pneumonia, bronchiectasis History of Present Illness A 59-year-old woman with past medical history of hypertension, hyperlipidemia, arthritis, kidney stones, schizophrenia, and TIA in 2006 who presents to the ED today for generalized weakness, fatigue, chest pain, abdominal pain, cough, wheezing, urinary retention, and shortness of breath x 4 days. Chest pain is nonradiating, throbbing, constant, 8/10 without aggravating or alleviating factors. No recent sick contacts. Patient is compliant with her medications. She is an ex-smoker, previous hx of marijuana use. Patient was admitted for further care and pulmonary consultation is requested for evaluation and management due to the above findings. Review of Systems: 14-point review of systems negative unless otherwise noted above. Past Medical History: Hypertension, hyperlipidemia, arthritis, kidney stones, schizophrenia, TIA in 2006, Past Surgical History: Cholecystectomy, tracheotomy and abdominal tumor removal at 3 weeks old, splenectomy? Medications: Reviewed. Allergies: Ibuprofen. Family History: Non-Hodgkin's lymphoma. Social History: Former smoker. No alcohol use. Drugs: (Quit marijuana) Family History: FH: non-Hodgkin's lymphoma G8 FATHER grandmother Allergies: Coded Allergies: Ibuprofen (Verified Allergy, Unknown, 09/06/14) Home Meds Active Scripts Albuterol Sulfate (VENTOLIN MDI) 90 Mcg Ih, 90 MCG IN Q4HR, #1 INH Prov:MILLICENT ORELLANA MD 03/18/24 Azithromycin (Azithromycin) 500 Mg Tab, 1 TAB PO DAILY, #10 TAB Prov:MILLICENT ORELLANA MD 03/18/24 Fluconazole (Fluconazole) 200 Mg Tab, 1 TAB PO BID, #30 TAB Prov:MILLICENT ORELLANA MD 03/18/24 Docusate Sodium (Colace) 100 Mg Cap, 100 MG PO BID for 10 Days, #20 CAP Prov:MANUEL MAIN MD 08/06/22 Cephalexin (KEFLEX CAPSULE) 250 Mg Cp, 250 MG PO QID for 7 Days, #28 TAB Prov:MANUEL MAIN MD 08/06/22 Current Medications Current Medications Medications (Trade) Dose Ordered Sig/Yesika Route PRN Reason Start Time Stop Time Status Last Admin Ceftriaxone Sodium 50 ml @ 100 mls/hr DAILY@09 IV 03/16/24 09:00 Sodium Chloride 1,000 ml @ 70 mls/hr [id number] IV 03/16/24 07:00 Acetaminophen/ Hydrocodone Bitart ([place] 5/325MG Tab) 1 tab Q4HP PRN PO MODERATE PAIN (4-6 PAIN SCALE) 03/16/24 07:00 Ondansetron HCl (Zofran) 4 mg Q4HP PRN IV NAUSEA / VOMITING 03/16/24 07:00 Acetaminophen (Tylenol Tablet) 650 mg Q6HP PRN PO PAIN SCALE 1-3 OR TEMP>100.4 03/16/24 07:00 Morphine Sulfate 2 mg Q4HPRN PRN IV SEVERE PAIN (7-10 PAIN SCALE) 03/16/24 07:00 Nitroglycerin (Ntrostat Sublingual) 0.4 mg Q5MINP PRN SL FOR CHEST PAIN 03/16/24 07:00 Morphine Sulfate 2 mg Q30M PRN IV FOR CHEST PAIN 03/16/24 07:00 Aspirin (Ecotrin Enteric Coated Tablet) 81 mg DAILY PO 03/16/24 10:00 03/16/24 10:48 Atorvastatin Calcium (Lipitor) 10 mg HS PO 03/16/24 22:00 Azithromycin 250 ml @ 125 mls/hr DAILY IV 03/17/24 10:00 Fluconazole 100 ml @ 100 mls/hr Q1HR IV 03/16/24 22:00 03/16/24 23:59 UNV Fluconazole 100 ml @ 100 mls/hr 10,11 IV 03/17/24 10:00 UNV Vital Signs Vital Signs Date Time Temp Pulse Resp B/P (MAP) Pulse Ox O2 Delivery O2 Flow Rate FiO2 03/16/24 21:00 98.8 90 22 102/51 (68) 92 98.8 03/16/24 17:57 Room Air* 0 21 Physical Exam Gen.: Patient lying in bed in no apparent distress. Breathing on room air. Head: Normocephalic, atraumatic. Eyes: EOMI/PERRLA. Ears: Normal hearing. Normal anatomy. Neck/trachea: Trachea midline, supple. Nose: Normal external anatomy. Mouth: Moist mucous membranes. Chest: Decreased air entry bilaterally. No wheezing or rhonchi. Cardiovascular: Positive S1, positive S2. Regular rate and rhythm. Abdomen: Positive bowel sounds in all 4 quadrants. Soft, non-tender, non-dis tended. : Deferred. Rectal: Deferred. Skin: Warm, dry. Intact. Extremities: 2+ radial pulses bilaterally. No lower extremity edema. Neuro: Awake, alert, oriented x3. No gross motor or sensory deficits. Cranial nerves II through XII intact. Gait not assessed. Labs/Diagnostic Data Labs Test 03/16/24 13:05 03/16/24 12:50 03/16/24 08:26 03/16/24 04:49 Range/Units Influenza Type A Antigen Negative Negative Influenza Type B Antigen Negative Negative D-Dimer, Quantitative 0.85 H 0.0-0.49 mg/L FEU Sodium Level 128 L 136-145 mmol/L Potassium Level 3.4 L 3.5-5.1 mmol/L Chloride Level 97 L 98-107 mmol/L Carbon Dioxide Level 22 20-31 mmol/L Anion Gap 9 5-15 Blood Urea Nitrogen 48 H 9-23 mg/dL Creatinine 1.85 H 0.550-1.02 mg/dL Glomerular Filtration Rate Calc 31 >90 mL/min BUN/Creatinine Ratio 25.9 H 10.0-20.0 Serum Glucose 118 H 74-106 mg/dL Calcium Level 9.6 8.7-10.4 mg/dL SARS-CoV-2 Antigen (Rapid) Negative NEGATIVE Urine Color Yellow Yellow Urine Clarity Turbid H Clear Urine pH 5.5 5.0-9.0 Urine Specific [place] 1.018 1.001-1.035 Urine Protein 1+ H Negative Urine Ketones Negative Negative Urine Blood Trace H Negative /uL Urine Nitrite Negative Negative Urine Bilirubin Negative Negative Urine Urobilinogen Normal Negative mg/dL Urine Leukocyte Esterase Negative Negative /uL Urine RBC 2 0 - 4 /hpf Urine WBC 5 0 - 5 /hpf Urine Squamous Epithelial Cells Few <5 /hpf Urine Bacteria None seen None Seen /hpf Urine Hyaline Casts Mod 0 - 2 /lpf Urine Mucus Few None Seen Urine Sodium 18 L 40-220 mmol/L Urine Glucose Normal Normal mg/dL Urine Opiates Screen Neg NEGATIVE Urine Fentanyl Screen Neg NEGATIVE Urine Barbiturates Screen Neg NEGATIVE Urine Phencyclidine Screen Neg NEGATIVE Urine Amphetamines Screen Neg NEGATIVE Urine Benzodiazepines Screen Neg NEGATIVE Urine Cocaine Screen Neg NEGATIVE Urine Cannabinoids Screen Pos NEGATIVE Test 03/16/24 02:49 Range/Units White Blood Count 8.3 4.4-10.8 10^3/uL Red Blood Count 4.81 4.0-5.20 10^6/uL Hemoglobin 14.3 12.2-16.2 g/dL Hematocrit 40.5 36.0-46.0 % Mean Corpuscular Volume 84.1 80.0-100.0 fL Mean Corpuscular Hemoglobin 29.7 28.0-32.0 pg Mean Corpuscular Hemoglobin Concent 35.3 32.0-36.0 g/dL Red Cell Distribution Width 12.9 11.8-14.3 % Platelet Count 137 L 140-450 10^3/uL Mean Platelet Volume 10.1 6.9-10.8 fL Neutrophils (%) (Auto) 83.6 H 37.0-80.0 % Lymphocytes (%) (Auto) 8.3 L 10.0-50.0 % Monocytes (%) (Auto) 8.0 0.0-12.0 % Eosinophils (%) (Auto) 0.0 0.0-7.0 % Basophils (%) (Auto) 0.1 0.0-2.0 % Neutrophils # (Auto) 7.0 1.6-8.6 10 ^3/uL Lymphocytes # (Auto) 0.7 0.4-5.4 10 ^3/uL Monocytes # (Auto) 0.7 0-1.3 10 ^3/uL Eosinophils # (Auto) 0 0-0.8 10 ^3/uL Basophils # (Auto) 0 0-0.2 10 ^3/uL Nucleated Red Blood Cells 0.1 % Lactic Acid Level 1.5 0.4-2.0 mmol/L Magnesium Level 2.2 1.6-2.6 mg/dL Total Bilirubin 0.6 0.2-1.0 mg/dL Aspartate Amino Transferase (AST) 26 13-40 U/L Alanine Aminotransferase (ALT) 20 7-40 U/L Alkaline Phosphatase 58 46-116 U/L Troponin I High Sensitivity 16 </=34 ng/L B-Type Natriuretic Peptide 16.04 0-100 pg/mL Total Protein 8.1 5.7-8.2 g/dL Albumin 4.7 3.2-4.8 g/dL Lipase 76 H 12-53 U/L Plasma/Serum Blood Alcohol < 3.0 <10 mg/dL Assessment Impression: Atypical pneumonia Pneumonia, likely fungal in etiology Bronchiectasis exacerbation Acute kidney injury History of tracheostomy Cough, productive History of nicotine dependence Hypokalemia Elevated d-dimer Marijuana use Plan: Supplemental oxygen PRN Titrate to keep O2 sats above 92%. CT abdomen-pelvis demonstrated bronchiectasis and tree-in-bud opacities in the lower lobes. Continue antibiotics Start Diflucan d/t tree-in-bud opacities Monitor renal function. Monitor electrolytes. Supplement as necessary. Monitor ins and outs. Supplement potassium Nephrology recs appreciated. DVT prophylaxis. Prognosis: Poor given patient's multiple co-morbidities. Rest of plan per hospitalist and other consultants. Thank you, Dr. Orellana, for allowing me to participate in this patient's care. Further recommendations will depend on the patient's clinical course. Please do not hesitate to contact me if you have any questions or concerns. This medical document was created using an electronic medical record system with [employer] computerized dictation system. Although these documentations are being carefully reviewed, there may still be some phonetic and typographical changes. The errors are purely typographical, due to imperfection on the software program, and do not reflect any compromise in the patient's medical care. Plan discussed with: Patient, Other (CARLOS Nguyen/MD Orellana) SONAL DOSHI MD Mar 16, 2024 21:41
[2024-03-16] MEDS: ATORVASTATIN 20 MG TAB PO SCH (22:40)
[2024-03-16] MEDS: FLUCONAZOLE 200MG/100ML 100 ML IV SCH (22:41)
[2024-03-17] VITALS (8 sets, daily range): BP systolic 92–118; BP diastolic 50–76; PULSE 63–85; RESP 17–20; TEMP 97.4–98.7; O2SAT 90–99
[2024-03-17] MEDS: FLUCONAZOLE 200MG/100ML 100 ML IV ONE (02:26)
[2024-03-17] MEDS: HYDROcodone-ACET 5/325MG TAB PO PRN (03:58)
[2024-03-17 06:04] LABS: Basophils # (auto) 0 10 ^3/uL (0-0.2); Eosinophils # (auto) 0 10 ^3/uL (0-0.8); Hematocrit 36.7 % (36.0-46.0); Hemoglobin 12.7 g/dL (12.2-16.2); Lymphocytes # (auto) 1.7 10 ^3/uL (0.4-5.4); Lymphocytes % (auto) 14.3 % (10.0-50.0); Mean Corpuscular Hemoglobin 29.6 pg (28.0-32.0); Mean Corpuscular Hgb Conc. 34.5 g/dL (32.0-36.0); Mean Corpuscular Volume 85.9 fL (80.0-100.0); Monocytes # (auto) 0.8 10 ^3/uL (0-1.3); Monocytes % (auto) 6.6 % (0.0-12.0); Neutrophils # (auto) 9.2 10 ^3/uL (1.6-8.6); Neutrophils % (auto) 79.1 % (37.0-80.0); Platelet Count (auto) 140 10^3/uL (140-450); Red Blood Cells 4.28 10^6/uL (4.0-5.20); Red Cell Distribution Width 13.1 % (11.8-14.3); White Blood Cell 11.6 10^3/uL (4.4-10.8)
[2024-03-17 06:42] LABS: Alanine Aminotransferase 22 U/L (7-40); Albumin 4.3 g/dL (3.2-4.8); Alkaline Phosphatase 62 U/L (46-116); Anion Gap 7 (5-15); Aspartate Aminotransferase 23 U/L (13-40); BUN/Creatinine Ratio 31.6 (10.0-20.0); Bilirubin, Total 0.5 mg/dL (0.2-1.0); Calcium 9.9 mg/dL (8.7-10.4); Carbon Dioxide 26 mmol/L (20-31); Chloride 99 mmol/L (98-107); Total Protein 7.5 g/dL (5.7-8.2)
[2024-03-17 06:45] LABS: Blood Urea Nitrogen 37 mg/dL (9-23); Glucose 134 mg/dL (74-106); Potassium 2.8 mmol/L (3.5-5.1); Sodium 132 mmol/L (136-145)
[2024-03-17] MEDS: POTASSIUM CHL 20 Meq TABLET PO ONE (08:30)
[2024-03-17] MEDS: ONDANSETRON HCL 4 MG/2 ML VIAL IV PRN (08:53)
--- NOTE | 2024-03-17 09:51 | DVHPN2 ---
Reviewed: Care Plan, H&P, Labs, Medications, Previous Orders, Radiology Changes from previous H/P or p: No Changes Eyes: No Pain, No Vision change, No Conjunctivae inflammation, No Eyelid inflammation, No Other, No Redness ENT: No Ear pain, No Ear discharge, No Nose pain, No Nose discharge, No Nose congestion, No Mouth pain, No Mouth swelling, No Throat pain, No Throat swelling, No Other Cardiovascular: Chest Pain; No Palpitations, No Orthopnea, No Paroxysmal Noc. Dyspnea, No Edema, No Lt Headedness, No Other Respiratory: Cough; No Dry; Shortness of breath; No SOB with excertion; W heezing; No Hemoptysis, No Pleuritic Pain, No Sputum, No Other Gastrointestinal: No Nausea, No Vomiting; Abdominal Pain; No Diarrhea, No Constipation, No Melena, No Hematochezia, No Other Genitourinary: No Dysuria, No Frequency, No Incontinence, No Hematuria; R etention; No Other Musculoskeletal: No other, No neck pain, No shoulder pain, No arm pain, No back pain, No hand pain, No leg pain, No foot pain Skin: No Rash, No Lesions, No Jaundice, No Bruising, No Other Objective Vitals Vital Signs Date Time Temp Pulse Resp B/P (MAP) Pulse Ox O2 Delivery O2 Flow Rate FiO2 03/17/24 08:00 71 03/17/24 05:00 98.0 20 115/70 (85) 96 98.0 03/16/24 20:00 Room Air* 0 21 Intake/Output Intake and Output 03/17/24 07:00 Intake Total 700 ml Output Total 600 ml Balance 100 ml Intake Oral 500 ml IV Total 200 ml Output Urine Total 600 ml Medications Current Medications Medications Dose Ordered Sig/Yesika Route Start Time Stop Time Status Last Admin Dose Admin Ceftriaxone Sodium 50 ml @ 100 mls/hr DAILY@09 IV 03/16/24 09:00 03/17/24 09:08 100 MLS/HR Sodium Chloride 1,000 ml @ 70 mls/hr [id number] IV 03/16/24 07:00 Acetaminophen/ Hydrocodone Bitart 1 tab Q4HP PRN PO 03/16/24 07:00 03/17/24 03:58 1 TAB Ondansetron HCl 4 mg Q4HP PRN IV 03/16/24 07:00 03/17/24 08:53 4 MG Acetaminophen 650 mg Q6HP PRN PO 03/16/24 07:00 Morphine Sulfate 2 mg Q4HPRN PRN IV 03/16/24 07:00 Nitroglycerin 0.4 mg Q5MINP PRN SL 03/16/24 07:00 Morphine Sulfate 2 mg Q30M PRN IV 03/16/24 07:00 Aspirin 81 mg DAILY PO 03/16/24 10:00 03/16/24 10:48 81 MG Atorvastatin Calcium 10 mg HS PO 03/16/24 22:00 03/16/24 22:40 10 MG Azithromycin 250 ml @ 125 mls/hr DAILY IV 03/17/24 10:00 Fluconazole 100 ml @ 100 mls/hr 10,11 IV 03/17/24 10:00 Laboratory Results Laboratory Tests 03/17/24 05:37 Chemistry Test 03/16/24 12:50 03/17/24 05:37 Calcium Level 9.6 mg/dL (8.7-10.4) 9.9 mg/dL (8.7-10.4) Albumin 4.3 g/dL (3.2-4.8) Total Protein 7.5 g/dL (5.7-8.2) Coagulation Test 03/16/24 12:50 D-Dimer, Quantitative 0.85 mg/L FEU (0.0-0.49) H LFT Test 03/17/24 05:37 Alanine Aminotransferase (ALT) 22 U/L (7-40) Alkaline Phosphatase 62 U/L (46-116) Aspartate Amino Transferase (AST) 23 U/L (13-40) Total Bilirubin 0.5 mg/dL (0.2-1.0) Urinalysis Test 03/16/24 04:49 Urine Color Yellow (Yellow) Urine Clarity Turbid (Clear) H Urine pH 5.5 (5.0-9.0) Urine Specific [place] 1.018 (1.001-1.035) Urine Protein 1+ (Negative) H Urine Ketones Negative (Negative) Urine Blood Trace /uL (Negative) H Urine Nitrite Negative (Negative) Urine Bilirubin Negative (Negative) Urine Urobilinogen Normal mg/dL (Negative) Urine Leukocyte Esterase Negative /uL (Negative) Urine RBC 2 /hpf (0 - 4) Urine WBC 5 /hpf (0 - 5) Urine Squamous Epithelial Cells Few /hpf (<5) Urine Bacteria None seen /hpf (None Seen) Urine Hyaline Casts Mod /lpf (0 - 2) Urine Mucus Few (None Seen) Urine Sodium 18 mmol/L (40-220) L Urine Glucose Normal mg/dL (Normal) Microbiology Microbiology Date/Time Source Procedure Growth Status 03/16/24 02:49 Blood Blood Culture - Preliminary NO GROWTH AFTER 24 HOURS OF INCUBATION. Resulted Labs and/or images reviewed: Labs reviewed by me, Image(s) reviewed by me Assessment/Plan Assessment/Plan Sepsis secondary to community-acquired pneumonia Acute hypoxic respiratory failure: Oxygen by nasal cannula Acute bilateral pneumonia with the bronchiectasis in the right side: Rocephin azithromycin consult for Dr. Nickerson appreciated, fluconazole added Hypertension Hypercholesterolemia Schizophrenia History of kidney stones History of TIA History of arthritis acute hypokalemia potassium 2.7: Replace potassium Acute hyponatremia sodium 129: IV fluids Acute pancreatitis lipase 77 Acute kidney injury with a BUN 48 and 2.3 , Nephrology consult appreciated Chronic smoker more than 44 years: Patient claims she quit one week ago, counseled Jane test negative Rapid influenza test negative D-dimer slightly elevated 0.85 Marijuana abuse: Counseling Time spent 65 minutes Patient is full code Advanced care planning time 20mts Plan discussed with: Patient My Orders Orders - MILLICENT ORELLANA MD Procedure Category Date Status Time Azithromycin 500mg/ PHA 03/17/24 In Process 250ml (Zithromax 50 10:00 *Consult CONS 03/16/24 Transmitted / 11:49 * [facility] Business Manager CONS 03/16/24 Transmitted Consult 18:14 Date of Service: Mar 17, 2024 Billing Provider: MILLICENT ORELLANA MD Common Visit Codes: [id number] INP/OBS CARE(HIGH) MILLICENT ORELLANA MD Mar 17, 2024 09:51
[2024-03-17] MEDS: FLUCONAZOLE 200MG/100ML 100 ML IV SCH (10:00)
[2024-03-17 10:33] LABS: Hepatitis A Ab IgM Negative; Hepatitis B Core IgM Negative (Negative); Hepatitis B Surface Antigen Negative (Negative)
[2024-03-17 10:37] LABS: Hepatitis C Antibody Positive (Negative)
[2024-03-17] MEDS: AZITHROMYCIN 500MG/ 250ML 250 ML IV SCH (11:00)
--- NOTE | 2024-03-17 12:54 | ECG ---
[facility] Test Date: 2024-03-16 Test Time: 04:41:48 Pat Name: UCHE STYLES Department: ER Room: [address] [place] [address] 2 Gender: F Tonal Regulator: ROYCE : 1965 Requested By: JOSE ANTONIO BAUM Order Number: [id number] Reading MD: Isauro Patel Measurements Intervals [place] Rate: 99 P: 54 OK: 173 QRS: -79 QRSD: 110 T: 63 QT: 357 QTc: 459 Interpretive Statements Sinus rhythm Left anterior fascicular block Consider right ventricular hypertrophy Electronically Signed On 03-20-2024 15:27:53 PST by Isauro Patel Please click the below link to view image of tracing.
--- NOTE | 2024-03-17 14:58 | DVHSR ---
APPROVED REPORT EXAM: Two-dimensional and M-mode echocardiogram with Doppler and color Doppler. Blood Pressure: 106/64 mmHg INDICATION Chest Pain RISK FACTORS Height: 6'0, Weight: 165 DIMENSIONS LVDd4.5 (3.8-5.7cm)LA (2D)3.2 (1.9-4.0cm)Aortic Root4.0 (2.0-3.7cm) LVDs3.3 (2.5-4.0cm)LA (MM) (1.9-4.0cm)Aortic Cusp Exc1.4 (1.5-2.0cm) EF (%) 55.0 (55-70%)Rt. Atrium3.8 (1.9-4.0cm)Asc. Aorta3.6 cm IVSd1.0 (0.7-1.1cm)RV (D)3.5 (1.8-2.4cm) PWd0.8 (0.7-1.1cm) Mitral Valve MitralMitral Stenosis E wave0.69m/sMV Mean GR.mmHg A wave0.90m/sMV Peak GR.mmHg E/A ratio0.82D MVAcm2 DECEL [id number] 1/2 Tim[place] Aortic Valve Aortic ValveAortic Stenosis V11.08m/Terry Mean GR.4mmHg V21.25m/Terry Peak GR.6mmHg LVOT Diameter2.0 (1.8-2.4cm)Doppler AVA2.71cm2 Pulmonic Valve V20.87m/s LEFT VENTRICLE The left ventricle is of normal size. Wall thickness is normal. Ejection fraction is normal and is estimated at 55%. There is no regional wall motion abnormalities. Diastolic function is indetermina te. E to E prime ratio is in the normal range. RIGHT VENTRICLE The right ventricle is of normal size. Systolic function normal. ATRIA Both atria are of normal size. Not well visualized. MITRAL VALVE Normal structure and function. No significant mitral regurgitation. PULMONIC VALVE Likely normal. TRICUSPID VALVE Normal structure and function. No significant tricuspid regurgitation. PA systolic pressure is not adequately estimated. AORTIC VALVE Trileaflet in morphology. Leaflets are sclerotic. No significant stenosis or regurgitation. GREAT VESSELS The aortic root is measuring 4.0 cm at the level of the sinuses of Valsalva. Proximal ascending aort a is not well visualized. PERICARDIAL EFFUSION No significant pericardial effusion. IVC is dilated in size. Conclusion Normal left ventricular size and systolic function. Ejection fraction is estimated at 55%. Normal right ventricular size and systolic function. No hemodynamically significant valvular disease. The aortic valve is sclerotic. PA systolic pressure is not adequately assessed. Mildly dilated aortic root measuring 4.0 cm at the level of the sinuses of Valsalva.
--- NOTE | 2024-03-17 15:05 | DVHPN2 ---
Progress Note Date Seen: Mar 17, 2024 Medical Necessity Reason Pt with a Central, PICC or Fol: No Subjective Patient reports: Feels better Objective vital signs Vital Sign Date Time Temp Pulse Resp B/P (MAP) Pulse Ox O2 Delivery O2 Flow Rate FiO2 03/17/24 13:00 97.5 63 18 112/69 (83) 99 97.5 03/17/24 08:00 Room Air* 0 21 Total Intake and Output 03/16/24 03/16/24 03/17/24 15:00 23:00 07:00 Intake Total 700 ml Output Total 600 ml Balance 100 ml medications Current Medications Medications Dose Ordered Sig/Yesika Route Start Time Stop Time Status Last Admin Dose Admin Ceftriaxone Sodium 50 ml @ 100 mls/hr DAILY@09 IV 03/16/24 09:00 03/17/24 09:08 100 MLS/HR Sodium Chloride 1,000 ml @ 70 mls/hr [id number] IV 03/16/24 07:00 Acetaminophen/ Hydrocodone Bitart 1 tab Q4HP PRN PO 03/16/24 07:00 03/17/24 03:58 1 TAB Ondansetron HCl 4 mg Q4HP PRN IV 03/16/24 07:00 03/17/24 08:53 4 MG Acetaminophen 650 mg Q6HP PRN PO 03/16/24 07:00 Morphine Sulfate 2 mg Q4HPRN PRN IV 03/16/24 07:00 Nitroglycerin 0.4 mg Q5MINP PRN SL 03/16/24 07:00 Morphine Sulfate 2 mg Q30M PRN IV 03/16/24 07:00 Aspirin 81 mg DAILY PO 03/16/24 10:00 03/17/24 10:00 81 MG Atorvastatin Calcium 10 mg HS PO 03/16/24 22:00 03/16/24 22:40 10 MG Azithromycin 250 ml @ 125 mls/hr DAILY IV 03/17/24 10:00 03/17/24 11:00 125 MLS/HR Fluconazole 100 ml @ 100 mls/hr 10,11 IV 03/17/24 10:00 03/17/24 10:00 100 MLS/HR Examination: GENERAL:Abnormal, LUNGS:Abnormal, CVS:Abnormal laboratory and microbiology Laboratory Tests 03/17/24 05:37 Test 03/17/24 05:37 Range/Units Serum Glucose 134 H 74-106 mg/dL Microbiology Date/Time Source Procedure Growth Status 03/16/24 02:49 Blood Blood Culture - Preliminary NO GROWTH AFTER 24 HOURS OF INCUBATION. Resulted Problem List/Assessment/Plan Problem List/Assessment/Plan Acute kidney injury hemodynamically mediated Hyponatremia Hypokalemia sepsis PNA IVF potassium replacement ABX cultures pulm jarad is improving with IVF. No new recs at this time. will sign off Plan discussed with: Patient My Orders My Orders Orders - DIANA ZAMORA MD Procedure Category Date Status Time Basic Metabolic Panel LAB 03/18/24 Verified 04:00 DIANA ZAMORA MD Mar 17, 2024 15:05
[2024-03-17] MEDS: MORPHINE SULFATE INJ 2 MG/ml SYRG IV PRN (22:20)
--- NOTE | 2024-03-17 23:16 | DVHPN2 ---
Progress Note - Dictate Date Seen: Mar 17, 2024 Medical Necessity Reason Pt with a Central, PICC or Fol: No Subjective Patient seen and examined at bedside. Breathing comfortably on room air. Overnight events reviewed vital signs Vital Sign Date Time Temp Pulse Resp B/P (MAP) Pulse Ox O2 Delivery O2 Flow Rate FiO2 03/17/24 22:20 64 16 115/72 03/17/24 21:00 97.8 94 97.8 03/17/24 20:00 Room Air* 0 21 Total Intake and Output 03/16/24 03/16/24 03/17/24 15:00 23:00 07:00 Intake Total 700 ml Output Total 600 ml Balance 100 ml medications Current Medications Medications Dose Ordered Sig/Yesika Route Start Time Stop Time Status Last Admin Dose Admin Ceftriaxone Sodium 50 ml @ 100 mls/hr DAILY@09 IV 03/16/24 09:00 03/17/24 09:08 100 MLS/HR Sodium Chloride 1,000 ml @ 70 mls/hr [id number] IV 03/16/24 07:00 03/17/24 11:36 70 MLS/HR Acetaminophen/ Hydrocodone Bitart 1 tab Q4HP PRN PO 03/16/24 07:00 03/17/24 03:58 1 TAB Ondansetron HCl 4 mg Q4HP PRN IV 03/16/24 07:00 03/17/24 08:53 4 MG Acetaminophen 650 mg Q6HP PRN PO 03/16/24 07:00 Morphine Sulfate 2 mg Q4HPRN PRN IV 03/16/24 07:00 03/17/24 22:20 2 MG Nitroglycerin 0.4 mg Q5MINP PRN SL 03/16/24 07:00 Morphine Sulfate 2 mg Q30M PRN IV 03/16/24 07:00 Aspirin 81 mg DAILY PO 03/16/24 10:00 03/17/24 10:00 81 MG Atorvastatin Calcium 10 mg HS PO 03/16/24 22:00 03/17/24 22:18 10 MG Azithromycin 250 ml @ 125 mls/hr DAILY IV 03/17/24 10:00 03/17/24 11:00 125 MLS/HR Fluconazole 100 ml @ 100 mls/hr 10,11 IV 03/17/24 10:00 03/17/24 11:00 100 MLS/HR objective Gen.: Patient lying in bed in no apparent distress. Breathing on room air. Head: Normocephalic, atraumatic. Eyes: EOMI/PERRLA. Ears: Normal hearing. Normal anatomy. Neck/trachea: Trachea midline, supple. Nose: Normal external anatomy. Mouth: Moist mucous membranes. Chest: Decreased air entry bilaterally. No wheezing or rhonchi. Cardiovascular: Positive S1, positive S2. Regular rate and rhythm. Abdomen: Positive bowel sounds in all 4 quadrants. Soft, non-tender, non- distended. : Deferred. Rectal: Deferred. Skin: Warm, dry. Intact. Extremities: 2+ radial pulses bilaterally. No lower extremity edema. Neuro: Awake, alert, oriented x3. No gross motor or sensory deficits. Cranial nerves II through XII intact. Gait not assessed. laboratory and microbiology Laboratory Tests 03/17/24 05:37 Test 03/17/24 05:37 Range/Units Serum Glucose 134 H 74-106 mg/dL Assessment/Plan Impression: Bronchiectasis Acute kidney injury Hx of tracheostomy Cough, productive Hx of nicotine dependence Pneumonia, likely fungal in etiology Hypokalemia Elevated d-dimer Marijuana use Events: Remains on room air No respiratory distress. Patient is feeling slightly better. Complete course of antibiotics and antifungals Monitor renal function. Monitor electrolytes. Supplement as necessary. Potassium supplementation Pain control Avoid oversedation Labs and imaging reviewed. Rest of plan as noted below. Plan: Supplemental oxygen PRN Titrate to keep O2 sats above 92%. CT abdomen-pelvis demonstrated bronchiectasis and tree-in-bud opacities in the lower lobes. Continue antibiotics Diflucan d/t tree-in-bud opacities Monitor renal function. Monitor electrolytes. Supplement as necessary. Monitor ins and outs. Supplement potassium Nephrology recs appreciated. DVT prophylaxis. Prognosis: Poor given patient's multiple co-morbidities. Rest of plan per hospitalist and other consultants. Thank you, Dr. Yang, for allowing me to participate in this patient's care. Further recommendations will depend on the patient's clinical course. Please do not hesitate to contact me if you have any questions or concerns. This medical document was created using an electronic medical record system with [employer]. Although these documentations are being carefully reviewed, there may still be some phonetic and typographical changes. The errors are purely typographical, due to imperfection on the software program, and do not reflect any compromise in the patient's medical care. Plan discussed with: Patient, Other (CARLOS Hicks) SONAL DOSHI MD Mar 17, 2024 23:16
[2024-03-18 01:00] VITALS: BP 105/66; PULSE 62; RESP 17; TEMP 97.8; O2SAT 94
[2024-03-18 05:00] VITALS: BP 105/70; PULSE 66; RESP 18; TEMP 97.7; O2SAT 96
[2024-03-18 06:47] LABS: Anion Gap 8 (5-15); Carbon Dioxide 27 mmol/L (20-31); Chloride 103 mmol/L (98-107); Potassium 4.1 mmol/L (3.5-5.1); Sodium 138 mmol/L (136-145)
[2024-03-18 06:53] LABS: BUN/Creatinine Ratio 27.5 (10.0-20.0); Blood Urea Nitrogen 22 mg/dL (9-23); Glucose 107 mg/dL (74-106)
[2024-03-18 08:02] VITALS: PULSE 66
[2024-03-18 09:00] VITALS: BP 128/88; PULSE 71; RESP 16; TEMP 97.5; O2SAT 96
[2024-03-18] MEDS ORDERED: AZIT500T66 PO (10:09)
[2024-03-18] MEDS ORDERED: FLUC200T50 PO (10:09)
[2024-03-18] MEDS ORDERED: ALBUAER3 IN (10:10)
--- NOTE | 2024-03-18 10:12 | DVHPN2 ---
Reviewed: Care Plan, H&P, Labs, Medications, Previous Orders, Radiology Changes from previous H/P or p: No Changes Eyes: No Pain, No Vision change, No Conjunctivae inflammation, No Eyelid inflammation, No Other, No Redness ENT: No Ear pain, No Ear discharge, No Nose pain, No Nose discharge, No Nose congestion, No Mouth pain, No Mouth swelling, No Throat pain, No Throat swelling, No Other Cardiovascular: Chest Pain; No Palpitations, No Orthopnea, No Paroxysmal Noc. Dyspnea, No Edema, No Lt Headedness, No Other Respiratory: Cough; No Dry; Shortness of breath; No SOB with excertion; W heezing; No Hemoptysis, No Pleuritic Pain, No Sputum, No Other Gastrointestinal: No Nausea, No Vomiting; Abdominal Pain; No Diarrhea, No Constipation, No Melena, No Hematochezia, No Other Genitourinary: No Dysuria, No Frequency, No Incontinence, No Hematuria; R etention; No Other Musculoskeletal: No other, No neck pain, No shoulder pain, No arm pain, No back pain, No hand pain, No leg pain, No foot pain Skin: No Rash, No Lesions, No Jaundice, No Bruising, No Other Objective Vitals Vital Signs Date Time Temp Pulse Resp B/P (MAP) Pulse Ox O2 Delivery O2 Flow Rate FiO2 03/18/24 09:00 97.5 71 16 128/88 (101) 96 97.5 03/18/24 07:45 Room Air* 0 21 Intake/Output Intake and Output 03/18/24 07:00 Intake Total 2570 ml Balance 2570 ml Intake Oral 1070 ml IV Total 1500 ml # Voids 9 # Bowel Movements 2 Medications Current Medications Medications Dose Ordered Sig/Yesika Route Start Time Stop Time Status Last Admin Dose Admin Ceftriaxone Sodium 50 ml @ 100 mls/hr DAILY@09 IV 03/16/24 09:00 03/17/24 09:08 100 MLS/HR Sodium Chloride 1,000 ml @ 70 mls/hr [id number] IV 03/16/24 07:00 03/18/24 06:20 70 MLS/HR Acetaminophen/ Hydrocodone Bitart 1 tab Q4HP PRN PO 03/16/24 07:00 03/17/24 03:58 1 TAB Ondansetron HCl 4 mg Q4HP PRN IV 03/16/24 07:00 03/17/24 08:53 4 MG Acetaminophen 650 mg Q6HP PRN PO 03/16/24 07:00 Morphine Sulfate 2 mg Q4HPRN PRN IV 03/16/24 07:00 03/17/24 22:20 2 MG Nitroglycerin 0.4 mg Q5MINP PRN SL 03/16/24 07:00 Morphine Sulfate 2 mg Q30M PRN IV 03/16/24 07:00 Aspirin 81 mg DAILY PO 03/16/24 10:00 03/17/24 10:00 81 MG Atorvastatin Calcium 10 mg HS PO 03/16/24 22:00 03/17/24 22:18 10 MG Azithromycin 250 ml @ 125 mls/hr DAILY IV 03/17/24 10:00 03/17/24 11:00 125 MLS/HR Fluconazole 100 ml @ 100 mls/hr 10,11 IV 03/17/24 10:00 03/17/24 11:00 100 MLS/HR Laboratory Results Laboratory Tests 03/17/24 05:37 03/18/24 05:51 Chemistry Test 03/18/24 05:51 Calcium Level 10.0 mg/dL (8.7-10.4) Urinalysis Test 03/16/24 04:49 Urine Color Yellow (Yellow) Urine Clarity Turbid (Clear) H Urine pH 5.5 (5.0-9.0) Urine Specific [place] 1.018 (1.001-1.035) Urine Protein 1+ (Negative) H Urine Ketones Negative (Negative) Urine Blood Trace /uL (Negative) H Urine Nitrite Negative (Negative) Urine Bilirubin Negative (Negative) Urine Urobilinogen Normal mg/dL (Negative) Urine Leukocyte Esterase Negative /uL (Negative) Urine RBC 2 /hpf (0 - 4) Urine WBC 5 /hpf (0 - 5) Urine Squamous Epithelial Cells Few /hpf (<5) Urine Bacteria None seen /hpf (None Seen) Urine Hyaline Casts Mod /lpf (0 - 2) Urine Mucus Few (None Seen) Urine Sodium 18 mmol/L (40-220) L Urine Glucose Normal mg/dL (Normal) Microbiology Microbiology Date/Time Source Procedure Growth Status 03/16/24 02:49 Blood Blood Culture - Preliminary NO GROWTH AFTER 48 HOURS OF INCUBATION. Resulted Labs and/or images reviewed: Labs reviewed by me, Image(s) reviewed by me Assessment/Plan Assessment/Plan Sepsis secondary to community-acquired pneumonia resolved Acute hypoxic respiratory failure: Oxygen by nasal cannula Acute bilateral pneumonia with the bronchiectasis in the right side: Rocephin azithromycin consult for Dr. Nickerson appreciated, fluconazole added for tree-in-bud appearance Hypertension Hypercholesterolemia Schizophrenia History of kidney stones History of TIA History of arthritis acute hypokalemia potassium 2.7: Replace potassium Acute hyponatremia sodium 129: IV fluids Acute pancreatitis lipase 77 Acute kidney injury with a BUN 48 and 2.3 , Nephrology consult appreciated Chronic smoker more than 44 years: Patient claims she quit one week ago, counseled Jane test negative Rapid influenza test negative D-dimer slightly elevated 0.85 Marijuana abuse: Counseling Plan discussed with: Patient My Orders Orders - MILLICENT ORELLANA MD Procedure Category Date Status Time 2 Gm Sodium Diet DIET 03/17/24 Transmitted Dinner Date of Service: Mar 18, 2024 Billing Provider: MILLICENT ORELLANA MD Common Visit Codes: [id number] INP/OBS CARE(HIGH) MILLICENT ORELLANA MD Mar 18, 2024 10:12
--- NOTE | 2024-03-18 10:16 | DVHDS2 ---
Discharge Summary Date of Admission Mar 16, 2024 at 06:54 Date of Discharge: Mar 18, 2024 Admitting Diagnosis Shortness of breath Wounds: None Labs/Diagnostic Data: Laboratory Results Test 03/18/24 05:51 03/17/24 05:37 03/16/24 13:05 03/16/24 12:50 Sodium Level 138 mmol/L (136-145) Potassium Level 4.1 mmol/L (3.5-5.1) Chloride Level 103 mmol/L (98-107) Carbon Dioxide Level 27 mmol/L (20-31) Anion Gap 8 (5-15) Blood Urea Nitrogen 22 mg/dL (9-23) Creatinine 0.80 mg/dL (0.550-1.02) Glomerular Filtration Rate Calc 85 mL/min (>90) BUN/Creatinine Ratio 27.5 (10.0-20.0) Serum Glucose 107 mg/dL (74-106) Calcium Level 10.0 mg/dL (8.7-10.4) White Blood Count 11.6 10^3/uL (4.4-10.8) Red Blood Count 4.28 10^6/uL (4.0-5.20) Hemoglobin 12.7 g/dL (12.2-16.2) Hematocrit 36.7 % (36.0-46.0) Mean Corpuscular Volume 85.9 fL (80.0-100.0) Mean Corpuscular Hemoglobin 29.6 pg (28.0-32.0) Mean Corpuscular Hemoglobin Concent 34.5 g/dL (32.0-36.0) Red Cell Distribution Width 13.1 % (11.8-14.3) Platelet Count 140 10^3/uL (140-450) Mean Platelet Volume 9.9 fL (6.9-10.8) Neutrophils (%) (Auto) 79.1 % (37.0-80.0) Lymphocytes (%) (Auto) 14.3 % (10.0-50.0) Monocytes (%) (Auto) 6.6 % (0.0-12.0) Eosinophils (%) (Auto) 0.0 % (0.0-7.0) Basophils (%) (Auto) 0.0 % (0.0-2.0) Neutrophils # (Auto) 9.2 10 ^3/uL (1.6-8.6) Lymphocytes # (Auto) 1.7 10 ^3/uL (0.4-5.4) Monocytes # (Auto) 0.8 10 ^3/uL (0-1.3) Eosinophils # (Auto) 0 10 ^3/uL (0-0.8) Basophils # (Auto) 0 10 ^3/uL (0-0.2) Nucleated Red Blood Cells 0.0 % Total Bilirubin 0.5 mg/dL (0.2-1.0) Aspartate Amino Transferase (AST) 23 U/L (13-40) Alanine Aminotransferase (ALT) 22 U/L (7-40) Alkaline Phosphatase 62 U/L (46-116) Total Protein 7.5 g/dL (5.7-8.2) Albumin 4.3 g/dL (3.2-4.8) Hepatitis A IgM Antibody Negative Hepatitis B Surface Antigen Negative (Negative) Hepatitis B Core IgM Antibody Negative (Negative) Hepatitis C Antibody Positive (Negative) Influenza Type A Antigen Negative (Negative) Influenza Type B Antigen Negative (Negative) D-Dimer, Quantitative 0.85 mg/L FEU (0.0-0.49) Test 03/16/24 08:26 03/16/24 04:49 03/16/24 02:49 SARS-CoV-2 Antigen (Rapid) Negative (NEGATIVE) Urine Color Yellow (Yellow) Urine Clarity Turbid (Clear) Urine pH 5.5 (5.0-9.0) Urine Specific [place] 1.018 (1.001-1.035) Urine Protein 1+ (Negative) Urine Ketones Negative (Negative) Urine Blood Trace /uL (Negative) Urine Nitrite Negative (Negative) Urine Bilirubin Negative (Negative) Urine Urobilinogen Normal mg/dL (Negative) Urine Leukocyte Esterase Negative /uL (Negative) Urine RBC 2 /hpf (0 - 4) Urine WBC 5 /hpf (0 - 5) Urine Squamous Epithelial Cells Few /hpf (<5) Urine Bacteria None seen /hpf (None Seen) Urine Hyaline Casts Mod /lpf (0 - 2) Urine Mucus Few (None Seen) Urine Sodium 18 mmol/L (40-220) Urine Glucose Normal mg/dL (Normal) Urine Opiates Screen Neg (NEGATIVE) Urine Fentanyl Screen Neg (NEGATIVE) Urine Barbiturates Screen Neg (NEGATIVE) Urine Phencyclidine Screen Neg (NEGATIVE) Urine Amphetamines Screen Neg (NEGATIVE) Urine Benzodiazepines Screen Neg (NEGATIVE) Urine Cocaine Screen Neg (NEGATIVE) Urine Cannabinoids Screen Pos (NEGATIVE) Lactic Acid Level 1.5 mmol/L (0.4-2.0) Magnesium Level 2.2 mg/dL (1.6-2.6) Troponin I High Sensitivity 16 ng/L (</=34) B-Type Natriuretic Peptide 16.04 pg/mL (0-100) Lipase 76 U/L (12-53) Plasma/Serum Blood Alcohol < 3.0 mg/dL (<10) Other Laboratory Tests 03/18/24 05:51 03/17/24 05:37 Brief Hx & Hospital Course: 59-year-old female with a history of chronic smoking hypertension hypercholesterolemia schizophrenia history of TIA came in complaining of shortness of breaths found to have community-acquired pneumonia treated with Rocephin azithromycin consult for Dr. Nickerson CT chest showed possible tree in bud appearance and placed on fluconazole for possible fungal infection acute kidney injury resolved chronic history of smoking patient was counseled hypokalemia potassium 2.7 resolved Jane test negative flu test negative D-dimer slightly elevated at 0.85 discharged home on azithromycin fluconazole and Ventolin MDI she will follow up with Dr. Nickerson in two weeks and with the primary Dr. Patient requesting to be discharged home today Consults/Reason for consult Pulmonology Dr. Nickerson Operations or Procedures CT chest Condition at Discharge: Poor Final Diagnosis/Problems List Sepsis secondary to community-acquired pneumonia resolved Acute hypoxic respiratory failure: Oxygen by nasal cannula Acute bilateral pneumonia with the bronchiectasis in the right side: Rocephin azithromycin consult for Dr. Nickerson appreciated, fluconazole added for tree-in-bud appearance Hypertension Hypercholesterolemia Schizophrenia History of kidney stones History of TIA History of arthritis acute hypokalemia potassium 2.7: Replace potassium Acute hyponatremia sodium 129: IV fluids Acute pancreatitis lipase 77 Acute kidney injury with a BUN 48 and 2.3 , Nephrology consult appreciated Chronic smoker more than 44 years: Patient claims she quit one week ago, counseled Jane test negative Rapid influenza test negative D-dimer slightly elevated 0.85 Marijuana abuse: Counseling Discharge Disposition: Home Discharge Instruct/Medications Diet: Cardiac 2g Na,low cholest Activity: Light activity Follow Up/Referral: Follow up with the primary Dr in one week Resume all previous home meds Follow up with the pulmonology Dr. Nickerson in 2 weeks Medications: Azithromycin Fluconazole Lauren MOON 39 (Time taken for discharge summary 39 minutes) Discharge Statement: "Patient was advised to return to the ER or call 911 if any headaches, dizziness, shortness of breath, chest pain, abdominal pain, bleeding, fevers, or worsening of medical condition. Patient was counseled about treatment plan, medications, possible side effects, patientverbalized understanding. All questions were answered to the best of my ability. This discharge took greater then 30 minutes in planning, reviewing documentation, counseling the patient, and discussing with other team members." ASSESSMENT ASSESSMENT Hospital Course Improved marginally Assessment Sepsis secondary to community-acquired pneumonia resolved Acute hypoxic respiratory failure: Oxygen by nasal cannula Acute bilateral pneumonia with the bronchiectasis in the right side: Rocephin azithromycin consult for Dr. Nickerson appreciated, fluconazole added for tree-in-bud appearance Hypertension Hypercholesterolemia Schizophrenia History of kidney stones History of TIA History of arthritis acute hypokalemia potassium 2.7: Replace potassium Acute hyponatremia sodium 129: IV fluids Acute pancreatitis lipase 77 Acute kidney injury with a BUN 48 and 2.3 , Nephrology consult appreciated Chronic smoker more than 44 years: Patient claims she quit one week ago, counseled Jane test negative Rapid influenza test negative D-dimer slightly elevated 0.85 Marijuana abuse: Counseling Date of Service: Mar 18, 2024 Billing Provider: MILLICENT ORELLANA MD Common Visit Codes: [id number] DISCH DAY >30min MILLICENT ORELLANA MD Mar 18, 2024 10:16
[2024-03-18 10:23] VITALS: TEMP 36.4
--- NOTE | 2024-03-18 23:42 | DVHPN2 ---
Progress Note - Dictate Date Seen: Mar 18, 2024 Medical Necessity Reason Pt with a Central, PICC or Fol: No Subjective Patient seen and examined at bedside. Breathing comfortably on room air. Overnight events reviewed vital signs Vital Sign Date Time Temp Pulse Resp B/P (MAP) Pulse Ox O2 Delivery O2 Flow Rate FiO2 03/18/24 10:23 36.4 03/18/24 09:00 71 16 128/88 (101) 96 03/18/24 07:45 Room Air* 0 21 Total Intake and Output 03/17/24 03/17/24 03/18/24 15:00 23:00 07:00 Intake Total 1150 ml 570 ml 850 ml Balance 1150 ml 570 ml 850 ml objective Gen.: Patient lying in bed in no apparent distress. Breathing on room air. Head: Normocephalic, atraumatic. Eyes: EOMI/PERRLA. Ears: Normal hearing. Normal anatomy. Neck/trachea: Trachea midline, supple. Nose: Normal external anatomy. Mouth: Moist mucous membranes. Chest: Decreased air entry bilaterally. No wheezing or rhonchi. Cardiovascular: Positive S1, positive S2. Regular rate and rhythm. Abdomen: Positive bowel sounds in all 4 quadrants. Soft, non-tender, non- distended. : Deferred. Rectal: Deferred. Skin: Warm, dry. Intact. Extremities: 2+ radial pulses bilaterally. No lower extremity edema. Neuro: Awake, alert, oriented x3. No gross motor or sensory deficits. Cranial nerves II through XII intact. Gait not assessed. laboratory and microbiology Laboratory Tests 03/18/24 05:51 03/17/24 05:37 Test 03/18/24 05:51 Range/Units Serum Glucose 107 H 74-106 mg/dL Assessment/Plan Impression: Bronchiectasis Acute kidney injury Hx of tracheostomy Cough, productive Hx of nicotine dependence Pneumonia, likely fungal in etiology Hypokalemia Elevated d-dimer Marijuana use Events: Remains on room air No respiratory distress. Patient is feeling better. Complete course of antibiotics and antifungals Incentive spirometry Labs and imaging reviewed. Rest of plan as noted below. Plan: Supplemental oxygen PRN Titrate to keep O2 sats above 92%. CT abdomen-pelvis demonstrated bronchiectasis and tree-in-bud opacities in the lower lobes. Continue antibiotics Diflucan d/t tree-in-bud opacities Monitor renal function. Monitor electrolytes. Supplement as necessary. Monitor ins and outs. Nephrology recs appreciated. DVT prophylaxis. Prognosis: Poor given patient's multiple co-morbidities. Rest of plan per hospitalist and other consultants. Thank you, Dr. Yang, for allowing me to participate in this patient's care. Further recommendations will depend on the patient's clinical course. Please do not hesitate to contact me if you have any questions or concerns. This medical document was created using an electronic medical record system with [employer] dictation system. Although these documentations are being carefully reviewed, there may still be some phonetic and typographical changes. The errors are purely typographical, due to imperfection on the software program, and do not reflect any compromise in the patient's medical care. Plan discussed with: Patient, Other (CARLOS Delgadillo) SONAL DOSHI MD Mar 18, 2024 23:42
== END 2024-03-18 12:07 | disposition home or self-care (01) | DRG 720 ==
LOC: EDBD 01:52 → ER 01:52 → TELE 06:54 → TELE-E-ADS 17:28
PROVIDERS: ADMIT Family Medicine; ATTEND Family Medicine
DX: A41.50 Gram-negative sepsis, unspecified (principal); N17.0 Acute kidney failure with tubular necrosis; K85.90 Acute pancreatitis without necrosis or infection, unspecified; J15.69 Pneumonia due to other Gram-negative bacteria; D69.6 Thrombocytopenia, unspecified; J15.9 Unspecified bacterial pneumonia; E87.1 Hypo-osmolality and hyponatremia; J47.0 Bronchiectasis with acute lower respiratory infection; N18.4 Chronic kidney disease, stage 4 (severe); N17.9 Acute kidney failure, unspecified; Z20.822 Contact with and (suspected) exposure to COVID-19; J47.1 Bronchiectasis with (acute) exacerbation; E78.00 Pure hypercholesterolemia, unspecified; E87.6 Hypokalemia; F20.9 Schizophrenia, unspecified; I12.9 Hypertensive chronic kidney disease with stage 1 through stage 4 chronic kidney disease, or unspecified chronic kidney disease; F17.210 Nicotine dependence, cigarettes, uncomplicated; E87.8 Other disorders of electrolyte and fluid balance, not elsewhere classified; F12.10 Cannabis abuse, uncomplicated; Z90.49 Acquired absence of other specified parts of digestive tract; Z87.442 Personal history of urinary calculi; Z88.6 Allergy status to analgesic agent; Z86.73 Personal history of transient ischemic attack (TIA), and cerebral infarction without residual deficits; Z90.81 Acquired absence of spleen; Z80.7 Family history of other malignant neoplasms of lymphoid, hematopoietic and related tissues
CPT/HCPCS: 36415; 71045; 74176; 80048; 80053; 80074; 80307; 80320; 81001; 83605; 83690; 83735; 83880; 84300; 84484; 85025; 85379; 87040; 87426; 87804; 93005; 93306; 96365; 99291; G0378; J1450; J2405; Q0162

== ENCOUNTER 2024-04-23 19:00 | Emergency (ER) | payer MEDICAID ==
[~2024-04-23] VITALS: Ht 180.3 cm; Wt 77.1 kg
[~2024-04-23 19:00] MED LIST changes: +ALBUAER3 IN; +AZIT500T66 PO; +FLUC200T50 PO
--- NOTE | 2024-04-23 19:17 | ED.PDOC ---
History of Present Illness HPI Comments 59 y/o F presents with c/o foreign object in her right eye, today. Patient is a poor historian and endorses on having a history of having her right eyelashes falling and getting lost into her right eye, intermittently, for many years. She states on, usually, having her boyfriend assist her whenever it happens but states him passing, recently, and, now, inquires on ED assistance. She denies any blurry vision, eye redness, or irritation. Time Seen by MD: 19:00 Primary Care Provider: LILIA CHARLES Reviewed Notes: Nurses Notes, Medications, Allergies Allergies: Coded Allergies: Ibuprofen (Verified Allergy, Unknown, 09/06/14) Home Meds Active Scripts Albuterol Sulfate (VENTOLIN MDI) 90 Mcg Ih, 90 MCG IN Q4HR, #1 INH Prov:MILLICENT ORELLANA MD 03/18/24 Azithromycin (Azithromycin) 500 Mg Tab, 1 TAB PO DAILY, #10 TAB Prov:MILLICENT ORELLANA MD 03/18/24 Fluconazole (Fluconazole) 200 Mg Tab, 1 TAB PO BID, #30 TAB Prov:MILLICENT ORELLANA MD 03/18/24 Docusate Sodium (Colace) 100 Mg Cap, 100 MG PO BID for 10 Days, #20 CAP Prov:MANUEL MAIN MD 08/06/22 Cephalexin (KEFLEX CAPSULE) 250 Mg Cp, 250 MG PO QID for 7 Days, #28 TAB Prov:MANUEL MAIN MD 08/06/22 Information Source: Patient Mode of Arrival: Ambulatory Severity: Moderate Timing: Hours Duration: Since onset Prehospital treatment: None Past Medical History PAST MEDICAL HISTORY: Arthritis, High Lipids, HTN, Kidney Stones, Schizophrenia, TIA Past Medical History (Other): left prosthetic eye Surgical History: Cholecystectomy SOCIAL RESEARCH ASSISTANT History: No Pertinent SOCIAL RESEARCH ASSISTANT History Family History Family History: No family hx of Cancer, No family hx of Heart jose, No family hx of HTN, Family hx of DM Social History Smoker: Cigarettes Alcohol: Denies ETOH Use Drugs: Marijuana Lives In: Home EENTM: reports: others (foreign object in right eye ) All Other Systems: Reviewed and Negative (negative unless otherwise stated above or in HPI) Physical Exam General Appearance: No Apparent Distress, Normal HEENT: Normal ENT Inspection, Pharynx Normal, TMs Normal, Other (no lacrimation, injection, or swelling) Neck: Full Range of Motion, Non-Tender, Normal, Normal Inspection Respiratory: Chest Non-Tender, Lungs Clear, No Accessory Muscle Use, No Respiratory Distress, Normal Breath Sounds Cardiovascular: No Edema, No JVD, No Murmur, No Gallop, Normal Peripheral Pulses, Regular Rate/Rhythm Breast Exam: Deferred Gastrointestinal: No Organomegaly, Non Tender, No Pulsatile Mass, Normal Bowel Sounds, Soft Genitalia: Deferred Pelvic: Deferred Rectal: Deferred Extremities: No calf tenderness, Normal capillary refill, Normal inspection, Normal range of motion, Non-tender, No pedal edema Musculoskeletal : Apperance: Normal Neurologic: Alert, acting instructor II-XII nml as Tested, No Motor Deficits, Normal Affect, Normal Mood, No Sensory Deficits Cerebellar Function: Normal Reflexes: Normal Skin: Dry, Normal Color, Warm Lymphatic: No Adenopathy Was a procedure done? Was a procedure done?: Yes Sedation Sedation?: No Informed consent obtained: Yes Other Procedure Procedure i everted a misdirected eyelash from the right eye Differential Dx Considerations may include: foreign object, conjunctivitis, corneal abrasion Time of 1ST Reevaluation: 19:30 Reevaluation 1ST: Unchanged Time of 2ND Reevaluation: 20:14 Reevaluation 2ND: Improved Patient Education/Counseling: Diagnosis, Treatment, Prognosis, Need For Follow Up Family Education/Counseling: No Family Present Additional Information pt does not have FB nor corneal abrasion or conjunctivitis, but has one lash that is inverted towards the eye. i redirected it with a cotton qtip and pt feels improved Departure 1 Departure Time of Disposition: 20:15 Impression: Primary Impression: Corneal irritation of right eye Disposition: 01 HOME / SELF CARE / HOMELESS Condition: Good e-Prescriptions Artificial Tear Solution (ARTIFICIAL TEARS) Tears Ban 1 DROP RIGHTEYE QID, #15 ML 5 Refills Prov: JOSE CHACON MD 04/23/24 Discharged With: Self Critical Care Note Critical Care Time?: No Stability Stability form required: No Heart Score Heart Score: Heart Score Response (Comments) Value History N/A 0 EKG N/A 0 Age N/A 0 Risk Factors N/A 0 Troponin N/A 0 Total 0 I personally scribed for JOSE CHACON MD ([facility]) on 04/23/24 at 19:17. Electronically submitted by Tom Grijalva ([email or web address]). I personally scribed for JOSE CHACON MD ([email or web address]) on 04/23/24 at 19:39. Electronically submitted by Tom Grijalva ([email or web address]). JOSE CHACON MD Apr 23, 2024 19:17
[2024-04-23] MEDS ORDERED: ARTISOL13 RIGHTEYE (20:16)
[2024-04-23 20:25] VITALS: BP 108/70; PULSE 77; RESP 20; TEMP 98; O2SAT 100
== END 2024-04-23 20:38 | disposition home or self-care (01) ==
LOC: ER 19:00
DX: H57.89 Other specified disorders of eye and adnexa (principal); I10 Essential (primary) hypertension; E78.5 Hyperlipidemia, unspecified; F17.210 Nicotine dependence, cigarettes, uncomplicated; Z86.73 Personal history of transient ischemic attack (TIA), and cerebral infarction without residual deficits; Z90.49 Acquired absence of other specified parts of digestive tract; Z88.6 Allergy status to analgesic agent; Z79.899 Other long term (current) drug therapy